=== PATIENT | female | born 1960 | race Caucasian/White ===

== ENCOUNTER 2018-07-28 09:48 | Observation (INO) | payer BC ==
[2018-07-28] MEDS ORDERED: NITROGLYCERIN 0.4 MG/TAB SL ONE (10:25)
[2018-07-28] MEDS ORDERED: ASPIRIN 81 MG CHEWABLE TABLET ONE (10:25)
--- NOTE | 2018-07-28 10:35 | RAD REPORT ---
EXAM DESCRIPTION: Loretta Single View07/28/2018 10:22 am CLINICAL HISTORY: Chest pain COMPARISON: 2012 FINDINGS: The lungs appear clear of acute infiltrate. The heart is normal size IMPRESSION: No acute abnormalities displayed
[2018-07-28 10:53] LABS: Protime INR 0.97
[2018-07-28 10:55] LABS: Absolute Lymphocytes (CBC) 2.8 K/uL (0.7-4.9); Absolute Monocytes 0.4 K/uL (0.1-1.3); Absolute Neutrophil 1.8 K/uL (1.8-8.0); Basophils % 1.2 % (0-1.3); Eosinophils % 1.3 % (0-4.4); Hematocrit 39.7 % (36.0-45.0); Lymphocytes % 54.3 % (15.3-44.8); MCH 29.9 pg (27.0-35.0); MCV 85.3 fL (80-100); MPV 10.3 fL (7.6-11.3); Monocytes % 7.3 % (3.3-12.3); RBC Red Blood Cell Count 4.65 M/uL (3.86-4.86)
[2018-07-28 11:14] LABS: ALT/SGPT 42 U/L (12-78); AST/SGOT 27 U/L (15-37); Albumin 4.7 g/dL (3.4-5.0); Alkaline Phosphatase 90 U/L (45-117); BUN Blood Urea Nitrogen 8 mg/dL (7-18); Bicarbonate 26 mmol/L (21-32); Bilirubin Direct < 0.1 mg/dL (0-0.2); Bilirubin Total 0.4 mg/dL (0.2-1.0); Glucose Level 119 mg/dL (74-106); Magnesium 1.9 mg/dL (1.8-2.4); NT PRO-BNP 18 pg/mL (<125); Potassium 3.3 mmol/L (3.5-5.1); Protein, Total 9.3 g/dL (6.4-8.2); Sodium Level 139 mmol/L (136-145); Troponin (Emerg Dept Use Only) < 0.02 ng/mL (0.0-0.045)
--- NOTE | 2018-07-28 11:46 | EDPHYS ---
Physician Documentation [facility] Name: Alexandra Mendoza Age: 58 yrs Sex: Female : 1960 Arrival Date: 07/28/2018 Time: 09:48 Bed 8 Private MD: Sloane Mcguire F ED Physician Octavio Mckee HPI: 07/28 10:43 This 58 yrs old Female presents to ER via Ambulatory with complaints of Chest jr8 Pain. 10:43 The patient or guardian reports chest pain that is located primarily in the substernal jr8 area. Onset: acutely, today. The pain radiates to the left arm, left neck, left jaw, the left scapula. Associated signs and symptoms: Pertinent positives: nausea. The chest pain is described as squeezing. Duration: The patient or guardian reports a single episode, that is still ongoing. Modifying factors: The symptoms are alleviated by nothing. the symptoms are aggravated by nothing. Severity of pain: At its worst the pain was moderate. The patient has experienced a previous episode. The patient has not recently seen a physician. Stated that she has had chest pain on/off for the past couple of weeks. Today more severe. Sent from PCP to ED for further evaluation . Historical: - Allergies: 10:04 Sulfa (Sulfonamide Antibiotics); jl7 10:04 Morphine; jl7 - PMHx: 10:04 High Cholesterol; Diabetes - NIDDM; Hypertension; Growth on Thyroid; jl7 - PSHx: 10:04 Lap Band; Hysterectomy; Bladder suspension; right foot; right wrist; liver dissection, jl7 left lobe; - Immunization history:: Adult Immunizations up to date. - Social history:: Smoking status: Patient/guardian denies using tobacco. - Ebola Screening: : No symptoms or risks identified at this time. ROS: 10:43 Eyes: Negative for injury, pain, redness, and discharge, ENT: Negative for injury, jr8 pain, and discharge, Neck: Negative for injury, pain, and swelling, Respiratory: Negative for shortness of breath, cough, wheezing, and pleuritic chest pain, Abdomen/GI: Negative for abdominal pain, nausea, vomiting, diarrhea, and constipation, Back: Negative for injury and pain, MS/Extremity: Negative for injury and deformity, Skin: Negative for injury, rash, and discoloration, Neuro: Negative for headache, weakness, numbness, tingling, and seizure. 10:43 Cardiovascular: Positive for chest pain, Negative for edema, orthopnea, palpitations, paroxysmal nocturnal dyspnea. Exam: 10:43 Eyes: Pupils equal round and reactive to light, extra-ocular motions intact. Lids and jr8 lashes normal. Conjunctiva and sclera are non-icteric and not injected. Cornea within normal limits. Periorbital areas with no swelling, redness, or edema. ENT: Nares patent. No nasal discharge, no septal abnormalities noted. Tympanic membranes are normal and external auditory canals are clear. Oropharynx with no redness, swelling, or masses, exudates, or evidence of obstruction, uvula midline. Mucous membranes moist. Neck: Trachea midline, no thyromegaly or masses palpated, and no cervical lymphadenopathy. Supple, full range of motion without nuchal rigidity, or vertebral point tenderness. No Meningismus. Cardiovascular: Regular rate and rhythm with a normal S1 and S2. No gallops, murmurs, or rubs. Normal PMI, no JVD. No pulse deficits. Respiratory: Lungs have equal breath sounds bilaterally, clear to auscultation and percussion. No rales, rhonchi or wheezes noted. No increased work of breathing, no retractions or nasal flaring. Abdomen/GI: Soft, non-tender, with normal bowel sounds. No distension or tympany. No guarding or rebound. No evidence of tenderness throughout. Back: No spinal tenderness. No costovertebral tenderness. Full range of motion. Skin: Warm, dry with normal turgor. Normal color with no rashes, no lesions, and no evidence of cellulitis. MS/ Extremity: Pulses equal, no cyanosis. Neurovascular intact. Full, normal range of motion. Neuro: Awake and alert, GCS 15, oriented to person, place, time, and situation. Cranial nerves II-XII grossly intact. Motor strength 5/5 in all extremities. Sensory grossly intact. Cerebellar exam normal. Normal gait. Vital Signs: 10:04 BP 196 / 90; Pulse 95; Resp 16 S; Temp 98.3(O); Pulse Ox 100% on R/A; Weight 77.11 kg jl7 (R); Height 5 ft. 1 in. (154.94 cm) (R); Pain 6/10; 11:00 BP 168 / 94; Pulse 88; Resp 16; Pulse Ox 100% on R/A; Pain 6/10; hb 11:57 BP 150 / 92; Pulse 87; Resp 15; Pulse Ox 100% on R/A; Pain 6/10; hb 14:00 BP 205 / 95; Pulse 118; Resp 17; Pulse Ox 100% on R/A; Pain 8/10; hb 15:17 BP 134 / 64; Pulse 86; Resp 15; Pulse Ox 100% on R/A; Pain 3/10; hb 10:04 Body Mass Index 32.12 (77.11 kg, 154.94 cm) jl7 MDM: 10:07 Patient medically screened. jr8 11:33 Differential diagnosis: abnormal EKG, acute myocardial infarction, acute pericarditis, jr8 chest wall pain, cholecystitis, Cholelithiasis costochondritis, esophagitis, pancreatitis, pneumonia, pneumothorax, pulmonary embolus, stable angina, thoracic aortic disection, unstable angina. The patient was given aspirin in the Emergency Department. The patient's pulmonary embolism risk score was calculated as follows: the patients heart rate is greater than 100 beats per minute (1.5 Pts) Total Score: 0-2 points. This patient was found to be at low risk for a pulmonary embolism by using the Well's assessment criteria. Data reviewed: vital signs, nurses notes, lab test result(s), EKG, radiologic studies, plain films, and as a result, I will admit patient. Data interpreted: Pulse oximetry: on room air is 100 %. Interpretation: normal. Counseling: I had a detailed discussion with the patient and/or guardian regarding: the historical points, exam findings, and any diagnostic results supporting the discharge/admit diagnosis, lab results, radiology results, the need for further work-up and treatment in the hospital. 11:40 Physician consultation: Sloane Mcguire MD was called at 11:40, was contacted at 11:40, jr8 regarding admission, to the telemetry unit. consult, patient's condition, and will see patient would like consultation with Dr. Turcios. 14:09 ED course: Patient had sudden onset chest pain with tachycardia, tachypnea, and jr8 Elevated BP. Repeating EKG, Trop and doing CT chest . 07/28 10:07 Order name: Basic Metabolic Panel jr8 07/28 10:07 Order name: CBC with Diff jr8 07/28 10:07 Order name: LFT's [facility] 07/28 10:07 Order name: Magnesium [facility] 07/28 10:07 Order name: NT PRO-BNP [facility] 07/28 10:07 Order name: PT-INR [facility] 07/28 10:07 Order name: Troponin (emerg Dept Use Only) [facility] 07/28 10:54 Order name: Protime (+INR); Complete Time: 11:03 EDMS 07/28 11:00 Order name: CBC with Automated Diff; Complete Time: 11:03 EDMS 07/28 11:21 Order name: Basic Metabolic Panel; Complete Time: 11:26 EDMS 07/28 11:21 Order name: Liver (Hepatic) Function; Complete Time: 11:26 EDMS 07/28 11:21 Order name: Troponin (Emerg Dept Use Only); Complete Time: 11:26 EDMS 07/28 11:21 Order name: NT PRO-BNP; Complete Time: 11:26 EDMS 07/28 11:21 Order name: Magnesium; Complete Time: 11:26 EDMS 07/28 10:07 Order name: XRAY Chest (1 view) [facility] 07/28 10:07 Order name: EKG; Complete Time: 10:08 [facility] 07/28 10:07 Order name: Cardiac monitoring; Complete Time: 10:30 [facility] 07/28 10:36 Order name: RAD; Complete Time: 10:42 EDMS 07/28 14:07 Order name: Troponin (emerg Dept Use Only) [facility] 07/28 14:09 Order name: CT Chest For PE Angio [facility] 07/28 14:56 Order name: Troponin (Emerg Dept Use Only); Complete Time: 15:07 EDMS 07/28 15:01 Order name: CT; Complete Time: 15:07 EDMS 07/28 10:07 Order name: EKG - Nurse/Tech; Complete Time: 10:30 [facility] 07/28 10:07 Order name: IV Saline Lock; Complete Time: 10:30 [facility] 07/28 10:07 Order name: Labs collected and sent; Complete Time: 10:30 [facility] 07/28 10:07 Order name: O2 Per Protocol; Complete Time: 10:30 [facility] 07/28 10:07 Order name: O2 Sat Monitoring; Complete Time: 10:30 [facility] 07/28 14:07 Order name: EKG - Nurse/Tech; Complete Time: 15:20 jr8 Administered Medications: 10:22 Drug: Aspirin Chewable Tablet 324 mg Route: PO; hb 11:10 Follow up: Response: No adverse reaction hb 10:22 Drug: Nitroglycerin 0.4 mg Route: Sublingual; hb 10:28 Drug: Nitroglycerin 0.4 mg Route: Sublingual; hb 10:51 Drug: Nitroglycerin 0.4 mg Route: Sublingual; hb 11:30 Follow up: Response: No adverse reaction hb 11:53 Drug: Potassium Chloride 20 mEq Route: PO; hb 12:45 Follow up: Response: No adverse reaction hb 11:55 Drug: fentaNYL (PF) 50 mcg Route: IVP; Site: right antecubital; hb 12:30 Follow up: Response: No adverse reaction; Pain is decreased hb 11:55 Drug: Zofran 4 mg Route: IVP; Site: right antecubital; hb 12:30 Follow up: Response: No adverse reaction hb 13:00 Drug: Tylenol 1000 mg Route: PO; hb 14:00 Follow up: Response: No adverse reaction; Pain is decreased hb 14:15 Drug: fentaNYL (PF) 25 mcg Route: IVP; Site: right antecubital; hb 14:40 Follow up: Response: No adverse reaction; Pain is decreased hb 14:16 Drug: Labetalol 10 mg Route: IVP; Infused Over: 2 mins; Site: right antecubital; hb 15:00 Follow up: Response: No adverse reaction; Blood pressure is lowered hb Disposition: 07/29 06:35 Co-signature as Attending Physician, Octavio Mckee MD I agree with the assessment and юлия plan of care. Disposition: 07/28/18 11:45 Hospitalization ordered by Sloane Mcguire for Observation. Preliminary diagnosis is Unstable angina. - Bed requested for Telemetry/MedSurg (observation). - Status is Observation. hb - Condition is Stable. - Problem is new. - Symptoms have improved. UTI on Admission? No Signatures: Dispatcher [employer] EDOctavio Anne MD MD cha Roszak, Josh, PA PA jr8 Odilia Hopkins RN RN hb Leal, Jahala, RN RN jl7 Shine, Carey, RN RN df Corrections: (The following items were deleted from the chart) 07/28 13:28 11:45 Hospitalization Ordered by Sloane Mcguire MD for Observation. Preliminary df diagnosis is Unstable angina. Bed requested for Telemetry/MedSurg (observation). Status is Observation. Condition is Stable. Problem is new. Symptoms have improved. UTI on Admission? No. jr8 15:56 13:28 07/28/2018 11:45 Hospitalization Ordered by Sloane Mcguire MD for Observation. hb Preliminary diagnosis is Unstable angina. Bed requested for Telemetry/MedSurg (observation). Status is Observation. Condition is Stable. Problem is new. Symptoms have improved. UTI on Admission? No. df
--- NOTE | 2018-07-28 11:46 | ER ---
Nurse's Notes [facility] Name: Alexandra Mendoza Age: 58 yrs Sex: Female : 1960 Arrival Date: 07/28/2018 Time: 09:48 Bed 8 Private MD: Sloane Mcguire F Diagnosis: Unstable angina Presentation: 07/28 10:00 Presenting complaint: Patient states: Intermittent Chest pain x 2 weeks, radiates to jl7 neck, jaw and left shoulder blade, short of breath when it happens, it's been hurting for about 10-12 minutes now. Transition of care: patient was received from another setting of care (ambulatory primary care physician practice), Dr. Eller. Onset of symptoms was July 18, 2018. Risk Assessment: Do you want to hurt yourself or someone else? Patient reports no desire to harm self or others. Initial Sepsis Screen: Does the patient meet any 2 criteria? No. Patient's initial sepsis screen is negative. Does the patient have a suspected source of infection? No. Patient's initial sepsis screen is negative. Care prior to arrival: None. 10:00 Method Of Arrival: Ambulatory jl7 10:00 Acuity: RAY 2 jl7 Historical: - Allergies: 10:04 Sulfa (Sulfonamide Antibiotics); jl7 10:04 Morphine; jl7 - PMHx: 10:04 High Cholesterol; Diabetes - NIDDM; Hypertension; Growth on Thyroid; jl7 - PSHx: 10:04 Lap Band; Hysterectomy; Bladder suspension; right foot; right wrist; liver dissection, jl7 left lobe; - Immunization history:: Adult Immunizations up to date. - Social history:: Smoking status: Patient/guardian denies using tobacco. - Ebola Screening: : No symptoms or risks identified at this time. Screenin:33 Abuse screen: Denies threats or abuse. Denies injuries from another. Nutritional hb screening: No deficits noted. Tuberculosis screening: No symptoms or risk factors identified. Fall Risk None identified. Assessment: 10:15 General: Appears in no apparent distress. Behavior is calm, cooperative. Pain: hb Complains of pain in chest Pain does not radiate. Pain currently is 6 out of 10 on a pain scale. Pain began suddenly, 3 hours ago. Neuro: Level of Consciousness is awake, alert, obeys commands, Oriented to person, place, time, situation. Cardiovascular: Heart tones S1 S2 present Capillary refill < 3 seconds Patient's skin is warm and dry. Respiratory: Airway is patent Trachea midline Respiratory effort is even, unlabored, Respiratory pattern is regular, symmetrical, Breath sounds are clear bilaterally. GI: No signs and/or symptoms were reported involving the gastrointestinal system. : No signs and/or symptoms were reported regarding the genitourinary system. EENT: No signs and/or symptoms were reported regarding the EENT system. Derm: Skin is intact, is healthy with good turgor, Skin is pink, warm \T\ dry. Musculoskeletal: No signs and/or symptoms reported regarding the musculoskeletal system. 11:00 Reassessment: Patient appears in no apparent distress at this time. Patient and/or hb family updated on plan of care and expected duration. Pain level reassessed. Patient is alert, oriented x 3, equal unlabored respirations, skin warm/dry/pink. 11:45 Reassessment: Pt reports left sided chest pain 6/10. MIRELA Castillo notified at bedside, hb fentanyl administered as ordered. VSS. Family remains at bedside. 12:35 Reassessment: Patient appears in no apparent distress at this time. Patient and/or hb family updated on plan of care and expected duration. Pain level reassessed. Patient is alert, oriented x 3, equal unlabored respirations, skin warm/dry/pink. 14:15 Reassessment: Pt c/o sudden increase left sided chest pain, BP 205/95, HR 115-125. MIRELA Castillo notified, repeat EKG and tropon sent, fentanyl administrated as ordered. 14:35 Reassessment: Attempted to call report to floor, receiving nurse unavailable at this time. Charge Nurse Nai HUTCHISON notified. 14:45 Reassessment: Pt reports pain 2/10, VSS. Family remains at bedside. hb Vital Signs: 10:04 BP 196 / 90; Pulse 95; Resp 16 S; Temp 98.3(O); Pulse Ox 100% on R/A; Weight 77.11 kg jl7 (R); Height 5 ft. 1 in. (154.94 cm) (R); Pain 6/10; 11:00 BP 168 / 94; Pulse 88; Resp 16; Pulse Ox 100% on R/A; Pain 6/10; hb 11:57 BP 150 / 92; Pulse 87; Resp 15; Pulse Ox 100% on R/A; Pain 6/10; hb 14:00 BP 205 / 95; Pulse 118; Resp 17; Pulse Ox 100% on R/A; Pain 8/10; hb 15:17 BP 134 / 64; Pulse 86; Resp 15; Pulse Ox 100% on R/A; Pain 3/10; hb 10:04 Body Mass Index 32.12 (77.11 kg, 154.94 cm) jl7 ED Course: 09:48 Patient arrived in ED. rg4 09:49 Sloane Mcguire MD is Private Physician. rg4 10:02 EKG done, by prototype technician. reviewed by Octavio Mckee MD. sm3 10:03 Triage completed. jl7 10:04 Arm band placed on right wrist. jl7 10:07 Jonathan Gutierrez PA is PHCP. jr8 10:07 Octavio Mckee MD is Attending Physician. jr8 10:21 X-ray completed. Portable x-ray completed in exam room. Patient tolerated procedure jb2 well. 10:29 Odilia Hopkins, RN is Primary Nurse. hb 10:33 Inserted saline lock: 20 gauge in right antecubital area, using aseptic technique. hb Blood collected. Patient maintains SpO2 saturation greater than 95% on room air. 10:33 Patient has correct armband on for positive identification. Placed in gown. Bed in low hb position. Call light in reach. Side rails up X 1. desk monitor on. Pulse ox on. NIBP on. 11:45 Sloane Mcguire MD is Hospitalizing Provider. jr8 12:45 No provider procedures requiring assistance completed. Patient admitted, IV remains in hb place. 14:25 REPEAT EKG DONE. sm3 14:33 CT completed. Patient tolerated procedure well. Patient moved to CT via stretcher. sj Patient moved back from CT. Administered Medications: 10:22 Drug: Aspirin Chewable Tablet 324 mg Route: PO; hb 11:10 Follow up: Response: No adverse reaction hb 10:22 Drug: Nitroglycerin 0.4 mg Route: Sublingual; hb 10:28 Drug: Nitroglycerin 0.4 mg Route: Sublingual; hb 10:51 Drug: Nitroglycerin 0.4 mg Route: Sublingual; hb 11:30 Follow up: Response: No adverse reaction hb 11:53 Drug: Potassium Chloride 20 mEq Route: PO; hb 12:45 Follow up: Response: No adverse reaction hb 11:55 Drug: fentaNYL (PF) 50 mcg Route: IVP; Site: right antecubital; hb 12:30 Follow up: Response: No adverse reaction; Pain is decreased hb 11:55 Drug: Zofran 4 mg Route: IVP; Site: right antecubital; hb 12:30 Follow up: Response: No adverse reaction hb 13:00 Drug: Tylenol 1000 mg Route: PO; hb 14:00 Follow up: Response: No adverse reaction; Pain is decreased hb 14:15 Drug: fentaNYL (PF) 25 mcg Route: IVP; Site: right antecubital; hb 14:40 Follow up: Response: No adverse reaction; Pain is decreased hb 14:16 Drug: Labetalol 10 mg Route: IVP; Infused Over: 2 mins; Site: right antecubital; hb 15:00 Follow up: Response: No adverse reaction; Blood pressure is lowered hb Outcome: 11:45 Decision to Hospitalize by Provider. osvaldo 12:27 Admitted to ER Hold. Please see [facility] for further documentation. sg 15:56 Patient left the ED. hb Signatures: Syed Cr RN RN sg Orion Robles2 Khadijah Waldrop Josh, PA PA jr8 Odilia Hopkins, RN RN Bella Edmond4 Gwen Hanna RN RN jl7 Erin Pitts 3 Corrections: (The following items were deleted from the chart) 15:22 14:00 BP 105 / 95; Pulse 118bpm; Resp 17bpm; Pulse Ox 100% RA; Pain 8/10; hb hb
[2018-07-28] MEDS ORDERED: FENTANYL CITR 100 MCG/2 ML ONE ×2 (11:56→14:19)
[2018-07-28] MEDS ORDERED: POTASSIUM CL SA 10 MEQ TAB PO ONE (11:56)
[2018-07-28] MEDS ORDERED: ONDANSETRON 4 MG/2 ML VIAL ONE (11:56)
[2018-07-28 12:35] VITALS: BMI 32.1
[2018-07-28] MEDS ORDERED: ACETAMINOPHEN 500 MG TAB ONE (13:38)
[2018-07-28] MEDS ORDERED: INFLUENZA VACCINE (for 3y+) 0.5 ML DOSE IMVAC ONE ×2 (14:00→19:00)
[2018-07-28] MEDS ORDERED: LABETALOL HCL 100 MG/20 ML ONE (14:19)
[2018-07-28] MEDS ORDERED: LABETALOL 20 MG/4ML SYRINGE IV ONE (14:20)
--- NOTE | 2018-07-28 15:01 | RAD REPORT ---
EXAM DESCRIPTION: CT - Chest For Pe Angio - 07/28/2018 2:40 pm CLINICAL HISTORY: Chest pain COMPARISON: None. TECHNIQUE: Dynamically enhanced axial 3 mm thick images of the chest were obtained during administra tion of <100> mL Isovue 370 IV contrast. Coronal and oblique reconstruction images were generated and reviewed. Exam utilizes a protocol for optimal evaluation of pulmonary arterial tree. Maximum intensity projections 3D imaging was utilized All CT scans are performed using dose optimization technique as appropriate and may include automated exposure control or mA/KV adjustment according to patient size. FINDINGS: A pulmonary embolus is not seen. A thoracic aortic aneurysm is not noted. A pleural effusion is not seen. A pericardial effusion is not seen. A lung consolidation is not present. IMPRESSION: Negative for a pulmonary embolism.
[2018-07-28] MEDS ORDERED: ACETAMINOPHEN 500 MG TAB PO PRN (15:55)
[2018-07-28] MEDS ORDERED: ONDANSETRON 4 MG/2 ML VIAL IV PRN (15:55)
--- NOTE | 2018-07-28 16:01 | EKG ---
Test Date: 2018-07-28 Test Time: 09:58:45 Rail Car Repair Carman: YARY MEASUREMENT RESULTS: Intervals: Rate: 105 [place]: 122 QRSD: 84 QT: 346 QTc: 457 [place]: P: 59 NC: 122 QRS: 45 T: 95 INTERPRETIVE STATEMENTS: Sinus tachycardia Otherwise normal ECG Compared to ECG 05/28/2013 07:36:44 Sinus rhythm no longer present Prolonged QT interval no longer present Electronically Signed On 07-28-18 15:59:10 FORKLIFT WHEEL LOADER by Deven Contreras
[2018-07-28] MEDS: ENOXAPARIN 40 MG/0.4 ML SQ SCH (16:56)
[2018-07-28] MEDS ORDERED: NITROGLYCERIN 1 GM PKT TD SCH (18:00)
[2018-07-28] MEDS ORDERED: D50W 25 GM/50 ML SYRINGE IV PRN (21:07)
[2018-07-28] MEDS ORDERED: GLUCAGON 1 MG/VIAL IM PRN (21:07)
[2018-07-29] MEDS ORDERED: TRAMADOL HCL 50 MG TAB PO PRN (00:44)
--- NOTE | 2018-07-29 02:19 | HP ---
Date of Admission: 07/28/2018 History Of Present Illness: A 58-year-old female with multiple medical problems including type 2 jade betmonalisa presented to emergency room with a complaint of having chest pain in the substernal area along with some shortness of breath that stays per her for about 2 to 3 minutes. The patient has been havi ng this for about a month off and on mainly while she is sitting, not related to activity, and had no radiation. The patient with her increased risk factor for coronary artery disease and a complaint o f chest pain like that she was admitted from the emergency room. The patient had no nausea, no vomit ing, no palpitation, no dizziness, and voiced no other complaints. Review of Systems: Cardiovascular: As mentioned, no palpitation, however, chest pressure and chest pain may or may not be angina. Respiratory: Shortness of breath for short time as mentioned above. No cough. Gastrointestinal: No complaint. Genitourinary: No complaint. Skeletomuscular: No complaint. Neurological: No complaint. Past Medical History: 1.Type 2 diabetes mellitus. 2.Hypertension. 3.Hyperlipidemia. 4.History of gastroesophageal reflux disease and restless legs syndrome. Past Surgical History: The patient has had hysterectomy, bladder suspension surgery, and right foot and wrist surgery. Social History: Denies smoking, alcohol, or IV drug abuse history. Family History: Noncontributing. Medications: Medications include Norvasc 10 mg p.o. daily, Lotensin 40 mg p.o. daily, carvedilol 6.2 5 mg p.o. t.i.d., clonidine 0.1 mg p.o. b.i.d., fenofibrate 134 mg p.o. daily, Lamictal 100 mg p.o. t .i.d., omeprazole 20 mg p.o. daily, Seroquel XR 200 mg p.o. at bedtime, allopurinol 40 mg p.o. daily, Crestor 40 mg p.o. daily, trazodone 50 mg p.o. at bedtime. Allergies: SULFA. Physical Examination: Vital Signs: Blood pressure 190/90, pulse 95, temperature 98.3. Heart: Regular rate and rhythm. Chest: Clear to auscultation. Abdomen: Soft, nontender, nondistended. Bowel sounds normoactive. Extremities: No edema. No cyanosis. Peripheral pulses are felt. Neurological: Alert, oriented, nonfocal. Grossly intact. Diagnostic Data: Chest x-ray and chest CT, no acute pathology. EKG reported to me by ER physician s willaming no acute ischemia at this time. CBC noted. Chemistry: Potassium 3.3, BUN 8, creatinine 0.9. The troponin less than 0.02. Assessment And Plan: 1.Precordial chest pain in the patient with high risk for coronary artery disease being admitted. W e will repeat EKG and we will ask Cardiology consult. We will put her on home medicines for chronic medical illnesses. To be admitted for observation and pending Cardiology input and recommendation. We will follow that. We will put her on Lovenox subcutaneous prophylaxis. 2.Hypokalemia. We will put her on electrolyte protocol. 3.We will put the patient on regular insulin sliding scale and check her blood sugar fingersticks q. a.c. and h.s. Look orders for details. MFS/MODL Voice ID: [id number]
[2018-07-29 04:55] LABS: Absolute Lymphocytes (CBC) 3.2 K/uL (0.7-4.9); Absolute Monocytes 0.5 K/uL (0.1-1.3); Basophils % 0.8 % (0-1.3); Eosinophils % 1.2 % (0-4.4); Hematocrit 33.2 % (36.0-45.0); Lymphocytes % 54.7 % (15.3-44.8); MCH 29.9 pg (27.0-35.0); MCV 86.1 fL (80-100); Monocytes % 8.9 % (3.3-12.3); RBC Red Blood Cell Count 3.85 M/uL (3.86-4.86)
[2018-07-29 05:05] LABS: Potassium 3.6 mmol/L (3.5-5.1)
[2018-07-29] MEDS ORDERED: POTASSIUM 25 MEQ EFFERV TAB PO ONE (05:17)
--- NOTE | 2018-07-29 05:52 | EKG ---
Test Date: 2018-07-28 Test Time: 15:55:25 Director Packaging: ROSALIO MEASUREMENT RESULTS: Intervals: Rate: 79 PA: 136 QRSD: 82 QT: 410 QTc: 470 [place]: P: 15 PA: 136 QRS: 39 T: 80 INTERPRETIVE STATEMENTS: Normal sinus rhythm Prolonged QT Abnormal ECG Compared to ECG 07/28/2018 09:58:45 Prolonged QT interval now present Sinus tachycardia no longer present Electronically Signed On 07-29-18 05:51:55 DERRICK ENGINEER by Lionel Turcios
--- NOTE | 2018-07-29 05:53 | EKG ---
Test Date: 2018-07-28 Test Time: 14:20:49 Computer Operations Manager: ROSALIO MEASUREMENT RESULTS: Intervals: Rate: 90 [place]: 142 QRSD: 82 QT: 400 QTc: 489 [place]: P: 68 [place]: 142 QRS: 38 T: 76 INTERPRETIVE STATEMENTS: Normal sinus rhythm with a premature ventricular complex Prolonged QT Abnormal ECG Compared to ECG 07/28/2018 09:58:45 Prolonged QT interval now present Sinus tachycardia no longer present premature ventricular complex is now present Electronically Signed On 07-29-18 05:52:47 FIELD RADIO OPERATOR by Lionel Turcios
[2018-07-29] MEDS: INSULIN -REGULAR HUMAN 50 UNIT/0.5 ML ML SQ SCH ×3 (07:30→16:30)
[2018-07-29 07:40] LABS: Urine Appearance CLOUDY; Urine Bilirubin NEGATIVE (NEG); Urine Blood NEGATIVE (NEG); Urine Color YELLOW; Urine Glucose NEGATIVE (NEG); Urine Protein NEGATIVE (NEG); Urine Specific Gravity 1.015 (1.005-1.030); Urine Urobilinogen 0.2 mg/dL (0.2-1.0); Urine pH 5.5 (5.0-7.0)
[2018-07-29 08:04] LABS: Urine Microscopic Reflex ORDER UMIC
[2018-07-29 08:15] LABS: Urine Bacteria >50 /HPF (<20); Urine Culture Reflex Order REFLEXED; Urine RBC <5 /HPF (NONE SEEN)
[2018-07-29] MEDS ORDERED: ASPIRIN EC 81 MG TAB PO SCH (09:00)
[2018-07-29] MEDS ORDERED: REGADENOSON 0.4 MG/5 ML SYR IV ONE (11:06)
[2018-07-29 11:20] VITALS: O2SAT 93
[2018-07-29] MEDS ORDERED: levoFLOXacin 500 MG TAB PO SCH (12:00)
[2018-07-29] MEDS ORDERED: FENTANYL CITR 100 MCG/2 ML IV ONE (12:27)
--- NOTE | 2018-07-29 12:37 | EKG ---
Test Date: 2018-07-29 Test Time: 12:28:26 Draw Press Operator: TARA MEASUREMENT RESULTS: Intervals: Rate: 81 [place]: 140 QRSD: 86 QT: 406 QTc: 471 [place]: P: 50 [place]: 140 QRS: 54 T: 86 INTERPRETIVE STATEMENTS: Normal sinus rhythm Prolonged QT Abnormal ECG Compared to ECG 07/28/2018 15:55:25 No significant changes Electronically Signed On 07-29-18 12:37:00 STATION MASTER by Lionel Turcios
[2018-07-29 12:52] VITALS: BP 169/78; TEMP 97.5
--- NOTE | 2018-07-29 12:58 | CON ---
The patient is a 58-year-old woman. Chief Complaint: Chest pain. History Of Present Illness: Mrs. Mendoza has been having chest pain for 3 weeks. They are 15-min [place] spells, usually 3 a day. She is able to exert herself and do all kinds of activities and does no t notice any pattern. It is from 2 to 4 spells a day, each lasts 15 minutes. Hurts mostly in the le ft pectoral region, intense pain. She had one of those spells and had EKGs done both before, during, and after, and they are all similar, not indicating any ST changes. Ms. Mendoza had a cardiac ca th 15 years ago and it was normal. She had her gallbladder removed then. She has borderline glucose intolerance, takes metformin 500 mg once a day. She also takes blood pressure medicines, losartan a nd amlodipine. She takes levothyroxine and lovastatin. She uses no tobacco, no alcohol, no illegal drugs. Physical Examination: VITAL SIGNS: Five feet and 1 inch, 169 pounds. HEENT: Normal. Neck: Carotids, no bruit. Lungs: Clear. Cardiac: Normal. Abdomen: Soft. Extremities: Normal. Laboratory Data: She is mildly anemic, actually dropped her hemoglobin 2 g overnight, 13.9 to 11.5. Her creatinine is 0.9. Troponins are all less than 0.02. Her blood sugar is 119 and 142. Impression: Mrs. Mendoza probably is not having an acute coronary syndrome. We will do a nuclear stress test and echo, and then, take action based on what we see. GLORIA Voice ID: [id number] Report ID: [id number]
--- NOTE | 2018-07-29 13:10 | TREADPHA ---
DX: CHEST PAIN, MYOCARDIAL INFARCTION WAS RULED OUT Date of Study: 07/29/18 Ht: 5 1 Wt: 169 lb 15.622 oz Consulting Physician: ROLY MEDICATIONS: TYLENOL, EXTRA STRENGTH, ASPIRIN, DEXTROSE, LOVENOX, GLUCAGEN, NOVLLIN, ZOFRAN, ULTRAM HISTORY: 58 YEAR OLD FEMALE WITH COMPLAINTS OF CHEST PAIN. MEDICAL HISTORY OF HIGH CHOLESTEROL, DIABETES MELLITUS, HYPERTENSION, GROWTH ON THYROID PHYSICIAL EXAMINATION: RESTING B.P.: 164/65 RESTING H.R.: 80 RESTING EKG: NORMAL SINUS WITH PREMATURE VENTRICULAR COMPLEX OTHERWISE NORMAL PROTOCOL: LEXISCAN EXERCISE TIME: 3:30 B.P. AT PEAK STRESS: 168/75 IMPRESSION: LEXISCAN INJECTED, CARDIOLITE INJECTED PER PROTOCOL. SEE NUCLEAR MEDICINE REPORT. NO SUPRA VENTRICULAR TACHYCARDIA, NO VENTRICULAR TACHYCARDIA. OCCASIONAL PREMATURE VENTRICULAR COMLEXES THROUGHOUT. PATIENT STATES HAVING CRAMPING 6/10 IN CHEST. ONE PREMATURE VENTRICULAR COMPLEX. NON DIAGNOSTIC EKG WITH LEXISCAN STRESS.
--- NOTE | 2018-07-29 13:29 | ECHO ---
HEIGHT: 5 ft 1 in WEIGHT: 169 lb 15.622 oz DATE OF STUDY: 07/29/[address]: Lionel Turcios MD 2-DIMENSIONAL: YES M.MODE: YES DOPPLER: YES COLOR FLOW: YES TDS: NO PORTABLE: NO DEFINITY: NO BUBBLE STUDY: NO DIAGNOSIS: CHEST PAIN CARDIAC HISTORY: CATHERIZATION: NO SURGERY: NO PROSTHETIC VALVE: NO PACEMAKER: NO MEASUREMENTS (cm) DIASTOLIC (NORMALS) SYSTOLIC (NORMALS) IVSd 1.2 (0.6-1.2) LA Diam 4.2 (1.9-4.0) LVEF 64% LVIDd 3.5 (3.5-5.7) LVIDs 2.3 (2.0-3.5) %FS 34% LVPWd 1.1 (0.6-1.2) Ao Diam 2.7 (2.0-3.7) 2 DIMENSIONAL ASSESSMENT: RIGHT ATRIUM: NORMAL LEFT ATRIUM: DILATED RIGHT VENTRICLE: NORMAL LEFT VENTRICLE: NORMAL TRICUSPID VALVE: NORMAL MITRAL VALVE: NORMAL PULMONIC VALVE: NORMAL AORTIC VALVE: NORMAL PERICARDIAL EFFUSION: NONE AORTIC ROOT: NORMAL LEFT VENTRICULAR WALL MOTION: NORMAL. DOPPLER/COLOR FLOW: IMPAIRED LEFT VENTRICULAR RELAXATION. MILD TRICUSPID REGURGITATION. NORMAL RIGHT VENTRICULAR SYSTOLIC PRESSURE. COMMENTS: NORMAL LEFT VENTRICULAR EJECTION FRACTION. DILATED LEFT ATRIUM. IMPAIRED LEFT VENTRICULAR EJECTION FRACTION. MILD TRICUSPID REGURGITATION. TECHNOLOGIST: ABBY TUTTLE
--- NOTE | 2018-07-29 13:33 | RAD REPORT ---
EXAM DESCRIPTION: NM - Rest Stress Cardiac Imaging - 07/29/2018 1:27 pm CLINICAL HISTORY: CP Chest pain. COMPARISON: REST STRESS CARDIAC dated 05/28/2013 TECHNIQUE: The patient was administered approximately 10mCi of Tc 99m Sestamibi prior to resting SPE CT imaging of the heart. The patient was then administered approximately 30 mCi of Tc 99m Sestamibi f ollowing exercise or pharmacologic stress. Multiplanar SPECT images were reviewed. FINDINGS: No stress induced ischemic defect is seen to suggest stress induced ischemia. No fixed def ect is seen to suggest hibernating myocardium or scarred myocardium. The end diastolic volume is 57 ml, the end systolic volume is 17 ml, and the ejection fraction is 71 %. IMPRESSION: No stress induced ischemia.
[2018-07-29] MEDS ORDERED: INFLUENZA VACCINE (for 3y+) 0.5 ML DOSE IMVAC ONE (14:00)
--- NOTE | 2018-07-29 16:19 | PN ---
Subjective: The patient is doing well, has no complaints. No chest pain today and no shortness of b reath. Objective: Vital signs: Blood pressure 148/80, pulse 83, temperature 97. Heart: Regular rate and rhythm. Chest: Clear to auscultation. Abdomen: Soft, benign. Neurologic: Alert and oriented. Nonfocal. Grossly intact. Extremities: No edema. No cyanosis. Diagnostic Studies: Urinalysis showed evidence of UTI. Her troponin was basically less than 0.02. Chem-7 is noted. CBC noted. Assessment And Plan: Chest pain and shortness of breath, resolved. The patient is having stress elsy t to be done today. If it is negative, we will go ahead and discharge her on oral Levaquin for her u rinary tract infection. Meanwhile, continue current treatment. MFS/MODL Voice ID: [id number] Report ID: [id number]
[2018-07-29] MEDS: ENOXAPARIN 40 MG/0.4 ML SQ SCH (17:00)
[2018-07-29] MEDS ORDERED: ATORVASTATIN 10 MG TAB PO SCH (21:00)
[2018-07-30] MEDS ORDERED: LEVOTHYROXINE SOD 0.025 MG TAB PO SCH (09:00)
[2018-07-30] MEDS ORDERED: METFORMIN ER 500 MG TAB PO SCH (09:00)
[2018-07-30] MEDS ORDERED: LOSARTAN POTASSIUM 50 MG TABLET PO SCH (09:00)
[2018-07-30] MEDS ORDERED: AMLODIPINE 5 MG TAB PO SCH (09:00)
== END 2018-07-29 18:31 | disposition home or self-care (01) ==
LOC: ER 09:48 → ERHOLD 12:17 → 4TH 15:32
PROVIDERS: ADMIT Internal Medicine; ATTEND Internal Medicine
DX: R07.2 Precordial pain (principal); N39.0 Urinary tract infection, site not specified; E87.6 Hypokalemia; E11.9 Type 2 diabetes mellitus without complications; I10 Essential (primary) hypertension; E78.5 Hyperlipidemia, unspecified; K21.9 Gastro-esophageal reflux disease without esophagitis; G25.81 Restless legs syndrome; Z88.2 Allergy status to sulfonamides; Z23 Encounter for immunization
CPT/HCPCS: 36415; 71045; 71275; 78452; 80048; 80076; 81003; 81015; 82962; 83735; 83880; 84484; 85025; 85610; 87077; 87086; 87088; 87186; 93005; 93017; 93306; 96374; 96375; 99285; A9500; G0008; G0378; J1650; J2405; J2785; J3010; Q2035; Q9967

== ENCOUNTER → 2018-08-11 | Day surgery (SDC) | payer BC ==
--- NOTE | 2018-08-11 10:34 | RAD REPORT ---
EXAM DESCRIPTION: US - Guided FNA Non Breast - 08/11/2018 10:02 am CLINICAL HISTORY: Right thyroid nodule ^E04.1 COMPARISON: Ultrasound July 08, 2018 TECHNIQUE: Patient presents for ultrasound-guided fine-needle aspiration of a 2.5 centimeter mid rig ht thyroid lobe solid and cystic nodule. The procedure, risks and alternatives were discussed with the patient in detail. Patient had no contr aindicated allergy or medication history. After answering all questions, oral and written consent wer e obtained. Preliminary imaging identified the right thyroid nodule. Anterior right neck was prepped and draped i n the usual sterile fashion. Under ultrasound guidance, skin and deeper tissues were anesthetized wit h 1% lidocaine. Under ultrasound guidance a 25 gauge needle was advanced into the nodule solid compon ent. Multiple to and fro excursions of the needle tip performed. FNA was repeated with 3 additional 2 5 gauge needles. All material was given to pathology for cytology assessment. At the conclusion the procedure follow-up imaging showed no hematoma. Patient quantified no pain at t he conclusion of the procedure. Postprocedure care and precaution instructions were given to the von ent. FINDINGS: Ultrasound-guided FNA was performed as detailed. All obtained material was given to nimesh beaver for cytology assessment.
== END ==
LOC: FNA 09:12
PROVIDERS: ATTEND Internal Medicine
DX: E04.1 Nontoxic single thyroid nodule (principal); I10 Essential (primary) hypertension; R07.9 Chest pain, unspecified; Z13.6 Encounter for screening for cardiovascular disorders
CPT/HCPCS: 88162

== ENCOUNTER 2018-09-18 10:02 | Day surgery (SDC) | payer BC ==
[2018-09-17 17:18] LABS: Absolute Lymphocytes (CBC) 3.1 K/uL (0.7-4.9); Absolute Monocytes 0.4 K/uL (0.1-1.3); Absolute Neutrophil 2.2 K/uL (1.8-8.0); Basophils % 1.1 % (0-1.3); Eosinophils % 1.1 % (0-4.4); Hematocrit 37.8 % (36.0-45.0); Lymphocytes % 52.1 % (15.3-44.8); MPV 10.2 fL (7.6-11.3); Monocytes % 7.5 % (3.3-12.3); RBC Red Blood Cell Count 4.39 M/uL (3.86-4.86)
[2018-09-17 17:25] LABS: Protein, Total 8.3 g/dL (6.4-8.2)
[2018-09-18] MEDS ORDERED: NA CHLORIDE 0.9% 1,000 ML ONE ×2 (10:38→16:55)
[2018-09-18] MEDS ORDERED: MIDAZOLAM HCL 2 MG/2 ML INJ ONE (13:03)
[2018-09-18] MEDS ORDERED: PROPOFOL 200 MG/20 ML VIAL IV ONE (13:21)
[2018-09-18] MEDS ORDERED: GLYCOPYRROLATE 0.2 MG/ML SYR ONE (13:21)
[2018-09-18] MEDS ORDERED: LIDOCAINE 2% MPF 5 ML VIAL ONE (13:22)
[2018-09-18] MEDS ORDERED: FENTANYL CITR 250 MCG/5 ML ONE (13:23)
[2018-09-18] MEDS ORDERED: ROCURONIUM 50 MG/5 ML VIAL IV ONE (13:25)
[2018-09-18] MEDS ORDERED: ONDANSETRON 4 MG/2 ML VIAL ONE ×2 (13:25→16:27)
[2018-09-18] MEDS ORDERED: NEOSTIGMINE 1 MG/ML -5 ML SYRINGE ONE (13:25)
[2018-09-18] MEDS ORDERED: LIDOCAINE 1% W/EPI 1:100,000 MDV 50 ML VIAL ONE (13:39)
[2018-09-18] MEDS ORDERED: EPHEDRINE SULF 50 MG/10 ML SYR ONE (14:13)
--- NOTE | 2018-09-18 15:24 | P.BOP ---
Preoperative diagnosis: suspicious thyroid nodule Postoperative diagnosis: same Primary procedure: total thyroidectomy Student Specialist: Selena Macario Estimated blood loss: 20ml Specimen: TT, suture R superior pole Anesthesia: General Complications: None Drain(s): SUSIE drain Implants: surgicel to L tracheoesophageal groove/over L RLN Transferred to: Recovery Room Condition: Good
[2018-09-18] MEDS ORDERED: Mastisol Adhesive Liq ONE (15:34)
[2018-09-18] MEDS: MEPERIDINE HCL 50 MG/ML AMP ONE ×2 (15:48→15:53)
[2018-09-18] MEDS ORDERED: KETOROLAC 30 MG/ML INJ ONE (15:57)
[2018-09-18] MEDS ORDERED: MEPERIDINE HCL 50 MG/ML AMP ONE (16:25)
[2018-09-18] MEDS ORDERED: PROMETHAZINE 25 MG/ML VIAL ONE (16:47)
[2018-09-18 17:59] VITALS: BP 114/54; TEMP 98.2; O2SAT 99
[2018-09-18] MEDS ORDERED: HYDROCODONE/APAP 5/325 MG TAB ONE (18:03)
--- NOTE | 2018-09-19 01:56 | OP ---
Surgeon: Susan Kim MD Manager Filter: Selena Macario. Preoperative Diagnosis: Suspicious thyroid nodule. Postoperative Diagnosis: Suspicious thyroid nodule. Procedure: Total thyroidectomy. Indication For Procedure: Ms. Mendoza is a 58-year-old who underwent a fine-needle aspiration bio psy in 2013, which was benign. However, the patient over the last few months has developed a notable enlargement of the thyroid with development of dysphagia symptoms and underwent an ultrasound-guided fine-needle biopsy ordered by her primary care physician due to these symptoms. The patient was ref erred urgently for evaluation due to findings of suspicious nodule on molecular testing. The risks, benefits, and alternatives of the procedure were discussed with the patient and recommendation was pipo munoz for urgent surgery due to possible cancer diagnosis. Description Of Procedure: The patient was brought to the operating room. She was placed under gener al anesthesia via oral endotracheal tube. A shoulder roll was placed. The neck was extended. The n chari was cleaned with alcohol and injected with lidocaine with epinephrine. After time for effect, th e neck was cleaned with Betadine and draped in a standard fashion for thyroid surgery. A low-collar incision was made through the skin and subcutaneous tissues. The platysma was identified and divided , and subplatysmal flaps were elevated. The strap muscles were then identified in the midline and ca refully elevated off the surface of the thyroid. The right thyroid was noted to have a round firm no dule at approximately 2.5 cm. Dissection was carried out along the capsule of the thyroid. Portions of the thyroid seemed to extend deeply around into the tracheoesophageal groove and was likely contr ibuting to the development of her dysphagia symptoms. During elevation of the thyroid off the underl bhakti tissues, the right recurrent laryngeal nerve was identified. It did show a V like branching pat tern and both branches were preserved and noted to be physically intact at the end of the case. The right thyroid was then rotated medially and elevated off the anterior tracheal wall. The thyroid was then replaced into anatomic position and dissection of the left side was undertaken. The anterior s urface of the left thyroid was noted to be hypervascular with multiple tiny vessel sites on its surfa ce. The thyroid was carefully dissected. The inferior pole was easily elevated and freed from under lying tissue attachments. The superior pole was somewhat tethered down and careful dissection was pipo munoz in the area of Nemesio's ligament to avoid damage to the recurrent laryngeal nerve. With rotation o f the gland, the recurrent laryngeal nerve was identified and division of the tissues were made and t he nerve was appeared to be physically intact. There was some moderate oozing in the area immediatel y around the left recurrent laryngeal nerve. The packing was placed in this area for several minutes . After removal of the packing, there was improvement but persistent oozing. Due to the location of the site immediately adjacent to the nerve cautery, it was not felt to be in the patient's best inte rest. After several minutes of further packing with persistent oozing, a small piece of Gelfoam was laid over the recurrent laryngeal nerve within the left tracheoesophageal groove. A Ray-Bailey was pack ed over the Surgicel and left for several minutes. After removal of the Ray-Bailey, the area around the Surgicel was examined, but the Surgicel was not removed. There was no evidence of fresh bleeding or accumulation of blood within the surgical wound and the area was felt to be hemostatic. The specime n was carefully examined. The right superior pole of the thyroid was marked with a suture for orient ation for pathology and it was sent for permanent section only. There was no evidence of excised par athyroid glands on the surface of the thyroid specimen after its removal. The wound was then closed in a layered fashion. The strap muscles were approximated over the trachea with a single suture. Th e incision was then closed in a layered fashion using a 4-0 Vicryl and 5-0 Monocryl subcuticular sutu re. Steri-Strips and Mastisol were placed. The 10-Faroese round SUSIE drain, which had been placed in t he wound and withdrawn through the right neck was attached to a bulb suction, which appeared to be ho lding well. The drain was secured using a 3-0 nylon suture. The patient was then returned to [facility] [address] for awakening and extubation in the operating room, which proceeded without difficulty. Upon im mediate extubation, the patient had no evidence of respiratory distress and was transported in stable condition to the [facility]. JOELLEN/ZIA Voice ID: [id number] Report ID: [id number]
== END 2018-09-18 18:39 | disposition home or self-care (01) ==
LOC: OR 10:02
PROVIDERS: ATTEND Otolaryngology
PROC: 0GBJ0ZZ Excision of Thyroid Gland Isthmus, Open Approach (ICD-10-PCS; 2018-09-18)
PROC: 0GTK0ZZ Resection of Thyroid Gland, Open Approach (ICD-10-PCS; principal; 2018-09-18 13:15)
DX: C73 Malignant neoplasm of thyroid gland (principal); E06.3 Autoimmune thyroiditis; R49.0 Dysphonia; E03.9 Hypothyroidism, unspecified; E11.9 Type 2 diabetes mellitus without complications; I10 Essential (primary) hypertension; G47.33 Obstructive sleep apnea (adult) (pediatric); K21.9 Gastro-esophageal reflux disease without esophagitis; E78.00 Pure hypercholesterolemia, unspecified; Z88.2 Allergy status to sulfonamides; Z88.6 Allergy status to analgesic agent; Z90.49 Acquired absence of other specified parts of digestive tract; Z83.3 Family history of diabetes mellitus
CPT/HCPCS: 36415; 82310; 82962; 83970; 84155; 85025; 88307; J2175; J2250; J2405; J2550; J2704; J2710; J3010; J7030

== ENCOUNTER 2019-09-13 11:24 | Observation (INO) | payer BC ==
--- NOTE | 2019-09-13 12:07 | EKG ---
Test Date: 2019-09-13 Test Time: 11:32:06 Greige Goods Examiner: GISELLE MEASUREMENT RESULTS: Intervals: Rate: 82 MN: 120 QRSD: 80 QT: 396 QTc: 462 [place]: P: 80 MN: 120 QRS: 25 T: 76 INTERPRETIVE STATEMENTS: Normal sinus rhythm Nonspecific T wave abnormality Prolonged QT Abnormal ECG Compared to ECG 07/29/2018 12:28:26 T-wave abnormality now present Electronically Signed On 09-13-19 12:07:09 [employer] PLANS STAFF OFFICER by Lionel Turcios
[2019-09-13 12:08] LABS: Basophils % 1.1 % (0-1.3); Lymphocytes % 56.4 % (15.3-44.8); MPV 9.4 fL (7.6-11.3); Protime INR 1.02; RBC Red Blood Cell Count 4.06 M/uL (3.86-4.86)
--- NOTE | 2019-09-13 12:11 | RAD REPORT ---
EXAM DESCRIPTION: RAD - Chest Single View - 09/13/2019 11:59 am CLINICAL HISTORY: Chest pain;Dyspnea Chest pain. COMPARISON: Chest Single View dated 07/28/2018; CHEST SINGLE VIEW dated 05/27/2013; CHEST SINGLE VIEW dated 06/30/2012; CHEST PA AND LAT 2 VIEW dated 03/25/2012 FINDINGS: Portable technique limits examination quality. The lungs are grossly clear. The heart is upper limit of normal in size. No displaced fractures. IMPRESSION: No acute intrathoracic process suspected.
[2019-09-13 12:19] LABS: ALT/SGPT 76 U/L (12-78); AST/SGOT 62 U/L (15-37); Albumin 4.5 g/dL (3.4-5.0); Alkaline Phosphatase 41 U/L (45-117); BUN Blood Urea Nitrogen 11 mg/dL (7-18); Bicarbonate 29 mmol/L (21-32); Bilirubin Direct 0.1 mg/dL (0-0.2); Bilirubin Total 0.4 mg/dL (0.2-1.0); Glucose Level 95 mg/dL (74-106); Lipase 147 U/L (73-393); Magnesium 1.7 mg/dL (1.8-2.4); NT PRO-BNP 40 pg/mL (<125); Potassium 3.7 mmol/L (3.5-5.1); Sodium Level 137 mmol/L (136-145); Troponin (Emerg Dept Use Only) < 0.02 ng/mL (0.0-0.045)
[2019-09-13] MEDS ORDERED: FENTANYL CITR 100 MCG/2 ML ONE (12:39)
[2019-09-13] MEDS ORDERED: FAMOTIDINE 20 MG/2 ML VIAL IV ONE (12:40)
[2019-09-13] MEDS ORDERED: METOPROLOL TAR 50 MG TAB ONE (12:40)
[2019-09-13] MEDS ORDERED: ONDANSETRON 4 MG/2 ML VIAL ONE (12:40)
[2019-09-13] MEDS ORDERED: MAGNESIUM SULFATE 1 gm IVPB 1 GM/100 ML BAG IV ONE (13:00)
--- NOTE | 2019-09-13 13:00 | RAD REPORT ---
EXAM DESCRIPTION: CT - Angio Aorta For Dissection - 09/13/2019 12:49 pm CLINICAL HISTORY: Chest pain radiating to the back. Dissection;PE COMPARISON: CTANGIO AORTA FOR DISSECTION dated 05/27/2013 TECHNIQUE: CT angiography of the aorta was performed with MIPs. All CT scans are performed using dose optimization technique as appropriate and may include automated exposure control or mA/KV adjustment according to patient size. FINDINGS: A left aortic arch is present with normal branching pattern of the great vessels.No acute aortic finding is seen such as aneurysm, penetrating ulcer or dissection. The celiac axis, SMA, HAILEY and renal arteries are patent. No evidence of pulmonary embolism. The lungs are clear. Gastric banding changes are present. The liver demonstrates no focal mass or biliary dilatation.Fatty liver. Cholecystectomy clips.The spl een, pancreas, adrenal glands and kidneys are within normal limits for arterial phase imaging. No bowel obstruction, free fluid or abscess.No pathologic enlarged lymphadenopathy identified. No fracture or worrisome bone lesion seen.Moderate spondylosis L5-S1. IMPRESSION: No acute aortic finding is demonstrated. Fatty liver.
--- NOTE | 2019-09-13 13:42 | ER ---
Nurse's Notes [facility] Name: Alexandra Mendoza Age: 59 yrs Sex: Female : 1960 Arrival Date: 09/13/2019 Time: 11:26 Bed 25 Private MD: Diagnosis: Essential (primary) hypertension;Type 2 diabetes mellitus;Chest pain, unspecified;Vomiting;Hypomagnesemia;Urinary tract infection, site not specified Presentation: 09/13 11:28 Presenting complaint: Patient states: my blood pressure is running high, my head is tw2 tingly and chest pain an hour ago, denies NVD, denies cough/congestion. Transition of care: patient was not received from another setting of care. Onset of symptoms was September 13, 2019. Risk Assessment: Do you want to hurt yourself or someone else? Patient reports no desire to harm self or others. Initial Sepsis Screen: Does the patient meet any 2 criteria? No. Patient's initial sepsis screen is negative. Does the patient have a suspected source of infection? No. Patient's initial sepsis screen is negative. Care prior to arrival: None. 11:28 Method Of Arrival: Ambulatory tw2 11:28 Acuity: RAY 2 tw2 Triage Assessment: 11:29 General: Appears uncomfortable, Behavior is calm, cooperative, appropriate for age. tw2 Pain: Complains of pain in chest. Cardiovascular: Reports chest pain. Historical: - Allergies: 11:30 Morphine; tw2 11:30 Sulfa (Sulfonamide Antibiotics); tw2 11:30 Demerol; tw2 - Home Meds: 11:32 levothyroxine 137 mcg tab 1 tab once daily [Active]; fenofibrate oral 145 mg oral tw2 [Active]; lovastatin 10 mg Oral tab 1 tab once daily [Active]; losartan-hydrochlorothiazide 100-12.5 mg oral tab 1 tab once daily [Active]; metformin 1,000 mg Oral tab 1 tab 2 times per day [Active]; alendronate 70 mg/75 mL oral soln 75 mL once wkly [Active]; calcium carbonate 600 mg (1,500 mg) Oral tab [Active]; - PMHx: 11:30 Diabetes - NIDDM; Growth on Thyroid; High Cholesterol; Hypertension; tw2 - PSHx: 11:30 Lap Band; Hysterectomy; Bladder suspension; right foot; right wrist; liver dissection, tw2 left lobe; - Immunization history:: Adult Immunizations. - Social history:: Smoking status: . - Ebola Screening: : Patient denies travel to an Ebola-affected area in the 21 days before illness onset. - Family history:: not pertinent. Screenin:45 Abuse screen: Denies threats or abuse. Denies injuries from another. Nutritional aj1 screening: No deficits noted. Tuberculosis screening: No symptoms or risk factors identified. 16:00 Fall Risk No fall in past 12 months (0 pts). No secondary diagnosis (0 pts). IV access aj1 (20 points). Ambulatory Aid- None/Bed Rest/Nurse Assist (0 pts). Gait- Normal/Bed Rest/Wheelchair (0 pts) Mental Status- Oriented to own ability (0 pts). Total Mckeon Fall Scale indicates No Risk (0-24 pts). Assessment: 11:45 General: Appears in no apparent distress. uncomfortable, Behavior is calm, cooperative, aj1 appropriate for age. Pain: Complains of pain in anterior aspect of left upper chest Pain radiates to left arm Quality of pain is described as sharp, Pain began 1 hour ago. Is continuous. Neuro: Level of Consciousness is awake, alert, obeys commands, Oriented to person, place, time, situation. Cardiovascular: Reports chest pain, lightheadedness, nausea, Heart tones S1 S2 present Patient's skin is warm and dry. Rhythm is sinus rhythm. Respiratory: Airway is patent Respiratory effort is even, unlabored, Respiratory pattern is regular, symmetrical. GI: No signs and/or symptoms were reported involving the gastrointestinal system. : No signs and/or symptoms were reported regarding the genitourinary system. EENT: No signs and/or symptoms were reported regarding the EENT system. Derm: No signs and/or symptoms reported regarding the dermatologic system. Skin is pink, warm \T\ dry. normal. Musculoskeletal: No signs and/or symptoms reported regarding the musculoskeletal system. Circulation, motion, and sensation intact. 12:17 Reassessment: Patient appears in no apparent distress at this time. No changes from aj1 previously documented assessment. Patient and/or family updated on plan of care and expected duration. Pain level reassessed. Patient is alert, oriented x 3, equal unlabored respirations, skin warm/dry/pink. 13:23 Reassessment: Patient and/or family updated on plan of care and expected duration. Pain aj1 level reassessed. General: Appears in no apparent distress. comfortable, Behavior is calm, cooperative, appropriate for age. Neuro: Level of Consciousness is awake, alert, obeys commands, Oriented to person, place, time, situation. Cardiovascular: Patient's skin is warm and dry. Rhythm is sinus rhythm. Respiratory: Airway is patent Respiratory effort is even, unlabored, Respiratory pattern is regular, symmetrical. Derm: No signs and/or symptoms reported regarding the dermatologic system. Skin is pink, warm \T\ dry. normal. Musculoskeletal: No signs and/or symptoms reported regarding the musculoskeletal system. Circulation, motion, and sensation intact. 13:40 Reassessment: Notified Dr. Mckee of patient's current vital signs, BP 158/79 HR 86, aj1 patient has received oral Lopresor, but not IV Lopressor, asked if he still wanted patient to receive IV Lopressor. Order received to give the IV Lopressor as long as systolic BP remains above 100 and heart rate remains above 60. 14:30 Reassessment: Patient appears in no apparent distress at this time. No changes from aj1 previously documented assessment. Patient and/or family updated on plan of care and expected duration. Pain level reassessed. Patient is alert, oriented x 3, equal unlabored respirations, skin warm/dry/pink. 15:30 Reassessment: Patient appears in no apparent distress at this time. No changes from aj1 previously documented assessment. Patient and/or family updated on plan of care and expected duration. Pain level reassessed. Patient is alert, oriented x 3, equal unlabored respirations, skin warm/dry/pink. Vital Signs: 11:30 BP 233 / 109; Pulse 88; Resp 17; Temp 97.6(O); Pulse Ox 99% on R/A; Weight 77.11 kg; tw2 Height 5 ft. 1 in. (154.94 cm); Pain 6/10; 11:47 BP 195 / 95; Pulse 83; Resp 14; Pulse Ox 99% on R/A; aj1 12:00 BP 193 / 89; Pulse 82; Resp 16; Pulse Ox 97% on R/A; aj1 12:16 BP 185 / 81; Pulse 84; Resp 14; Pulse Ox 99% on R/A; aj1 12:32 BP 182 / 86; Pulse 82; Resp 14; Pulse Ox 97% on R/A; aj1 13:17 BP 158 / 79; Pulse 86; Resp 14; Pulse Ox 98% on R/A; aj1 14:02 BP 181 / 97; Pulse 72; Resp 13; Pulse Ox 96% on R/A; aj1 14:30 BP 179 / 92; Pulse 71; Resp 18; Pulse Ox 99% on R/A; aj1 15:00 BP 164 / 83; Pulse 69; Resp 18; Pulse Ox 97% on R/A; aj1 15:30 BP 170 / 80; Pulse 67; Resp 18; Pulse Ox 97% on R/A; aj1 11:30 Body Mass Index 32.12 (77.11 kg, 154.94 cm) tw2 ED Course: 11:26 Patient arrived in ED. as 11:29 Triage completed. tw2 11:29 Arm band placed on. tw2 11:30 EKG completed in triage. Results shown to MD. tw2 11:35 Octavio Mckee MD is Attending Physician. юлия 11:45 Patient has correct armband on for positive identification. systems integration analyst on. Pulse aj1 ox on. NIBP on. 11:45 No provider procedures requiring assistance completed. Patient maintains SpO2 aj1 saturation greater than 95% on room air. 11:46 Christina Chavez RN is Primary Nurse. aj1 11:50 Initial lab(s) drawn, by or, sent to lab. Inserted saline lock: 20 gauge in right aj1 antecubital area, using aseptic technique. Blood collected. 12:29 Prince Thorpe MD is Hospitalizing Provider. [facility] 16:00 Report given to FOSTER Lemos on 4th floor. aj1 16:00 Patient admitted, IV remains in place. aj1 Administered Medications: 12:42 Drug: Pepcid 20 mg Route: IVP; Site: left antecubital; aj1 15:56 Follow up: Response: No adverse reaction aj1 12:42 Drug: Lopressor (metoprolol TARTRATE) 50 mg {Note: BP 182/86 HR 85.} Route: PO; aj1 15:56 Follow up: Response: No adverse reaction aj1 12:43 Drug: fentaNYL (PF) 25 mcg Route: IVP; Site: left antecubital; aj1 15:57 Follow up: Response: No adverse reaction aj1 12:43 Drug: Zofran 4 mg Route: IVP; Site: left antecubital; aj1 15:57 Follow up: Response: No adverse reaction aj1 12:44 Drug: NS 0.9% 1000 ml Route: IV; Rate: 125 ml/hr; Site: left antecubital; aj1 15:58 Follow up: IV Status: Completed infusion; IV Intake: 500ml aj1 13:23 Drug: Magnesium Sulfate 1 grams Route: IVPB; Infused Over: 1 hrs; Site: left aj1 antecubital; 15:55 Follow up: IV Status: Completed infusion; IV Intake: 100ml aj1 13:40 Drug: Lopressor 2.5 mg {Note: BP 162/92 HR 81.} Route: IVP; Site: left antecubital; aj1 15:56 Follow up: Response: No adverse reaction aj1 13:51 Drug: Lopressor 2.5 mg {Note: BP 165/83 HR 77.} Route: IVP; Site: left antecubital; aj1 15:55 Follow up: Response: No adverse reaction aj1 15:54 Not Given (patient has already been admitted upstairs, order placed in [facility] and aj1 communicated to primary nurse FOSTER Lemos on 4th floor): Rocephin 1 grams IV at per protocol once; Given slow IV push per pharmacy instructions 15:57 Not Given (Other Intervention Used): fentaNYL (PF) 25 mcg IVP once; RASS on ADMIN: aj1 Combtv4, Very Agttd3, Agttd2, Rstlss1, AlertClm0, Drwsy-1, Lt Sdtn-2, Mod Sdtn-3, Dp Sdtn-4, UnArsble-5 Intake: 15:55 IV: 100ml; Total: 100ml. aj1 15:58 IV: 500ml; Total: 600ml. aj1 Outcome: 12:30 Decision to Hospitalize by Provider. юлия 16:01 Admitted to Tele accompanied by tech, via wheelchair, with chart. aj1 16:01 Condition: good 16:01 Discharge instructions given to patient, Instructed on the need for admit, Demonstrated understanding of instructions. 16:01 Patient left the ED. aj1 Signatures: Christina Chavez RN RN aj1 Octavio Mckee MD MD cha Martinez, Amelia as Wise, Tara, FOSTER RN tw2 Corrections: (The following items were deleted from the chart) 12:14 12:13 BP 193 / 89; Pulse 82bpm; Resp 16bpm; Pulse Ox 97% RA; aj1 aj1
--- NOTE | 2019-09-13 13:42 | EDPHYS ---
Physician Documentation [facility] Name: Alexandra Mendoza Age: 59 yrs Sex: Female : 1960 Arrival Date: 09/13/2019 Time: 11:26 Bed 25 Private MD: ED Physician Octavio Mckee HPI: 09/13 12:25 This 59 yrs old Female presents to ER via Ambulatory with complaints of Chest юлия Pain, High Blood Pressure. 12:25 The patient or guardian reports chest pain that is located primarily in the substernal юлия area, anterior chest wall, bilaterally. Onset: just prior to arrival, this morning. The pain radiates to back. Associated signs and symptoms: Pertinent positives: diaphoresis, dizziness, shortness of breath. The chest pain is described as aching. Modifying factors: The symptoms are alleviated by nothing. the symptoms are aggravated by nothing. Severity of pain: At its worst the pain was mild in the emergency department the pain. Historical: - Allergies: 11:30 Morphine; tw2 11:30 Sulfa (Sulfonamide Antibiotics); tw2 11:30 Demerol; tw2 - Home Meds: 11:32 levothyroxine 137 mcg tab 1 tab once daily [Active]; fenofibrate oral 145 mg oral tw2 [Active]; lovastatin 10 mg Oral tab 1 tab once daily [Active]; losartan-hydrochlorothiazide 100-12.5 mg oral tab 1 tab once daily [Active]; metformin 1,000 mg Oral tab 1 tab 2 times per day [Active]; alendronate 70 mg/75 mL oral soln 75 mL once wkly [Active]; calcium carbonate 600 mg (1,500 mg) Oral tab [Active]; - PMHx: 11:30 Diabetes - NIDDM; Growth on Thyroid; High Cholesterol; Hypertension; tw2 - PSHx: 11:30 Lap Band; Hysterectomy; Bladder suspension; right foot; right wrist; liver dissection, tw2 left lobe; - Immunization history:: Adult Immunizations. - Social history:: Smoking status: . - Ebola Screening: : Patient denies travel to an Ebola-affected area in the 21 days before illness onset. - Family history:: not pertinent. ROS: 12:25 Constitutional: Negative for fever, chills, and weight loss, Eyes: Negative for injury, юлия pain, redness, and discharge, ENT: Negative for injury, pain, and discharge, Neck: Negative for injury, pain, and swelling, Respiratory: Negative for shortness of breath, cough, wheezing, and pleuritic chest pain, : Negative for injury, bleeding, discharge, and swelling, MS/Extremity: Negative for injury and deformity, Skin: Negative for injury, rash, and discoloration, Neuro: Negative for headache, weakness, numbness, tingling, and seizure, Psych: Negative for depression, anxiety, suicide ideation, homicidal ideation, and hallucinations, Allergy/Immunology: Negative for hives, rash, and allergies, Endocrine: Negative for neck swelling, polydipsia, polyuria, polyphagia, and marked weight changes, Hematologic/Lymphatic: Negative for swollen nodes, abnormal bleeding, and unusual bruising. 12:25 Cardiovascular: Positive for chest pain. 12:25 Abdomen/GI: Positive for nausea and vomiting. 12:25 MS/extremity: Negative for acute changes. Exam: 12:25 Constitutional: This is a well developed, well nourished patient who is awake, alert, юлия and in no acute distress. Head/Face: Normocephalic, atraumatic. Eyes: Pupils equal round and reactive to light, extra-ocular motions intact. Lids and lashes normal. Conjunctiva and sclera are non-icteric and not injected. Cornea within normal limits. Periorbital areas with no swelling, redness, or edema. ENT: Nares patent. No nasal discharge, no septal abnormalities noted. Tympanic membranes are normal and external auditory canals are clear. Oropharynx with no redness, swelling, or masses, exudates, or evidence of obstruction, uvula midline. Mucous membranes moist. Neck: Trachea midline, no thyromegaly or masses palpated, and no cervical lymphadenopathy. Supple, full range of motion without nuchal rigidity, or vertebral point tenderness. No Meningismus. Chest/axilla: Normal chest wall appearance and motion. Nontender with no deformity. No lesions are appreciated. Cardiovascular: Regular rate and rhythm with a normal S1 and S2. No gallops, murmurs, or rubs. Normal PMI, no JVD. No pulse deficits. Respiratory: Lungs have equal breath sounds bilaterally, clear to auscultation and percussion. No rales, rhonchi or wheezes noted. No increased work of breathing, no retractions or nasal flaring. Abdomen/GI: Soft, non-tender, with normal bowel sounds. No distension or tympany. No guarding or rebound. No evidence of tenderness throughout. Back: No spinal tenderness. No costovertebral tenderness. Full range of motion. Skin: Warm, dry with normal turgor. Normal color with no rashes, no lesions, and no evidence of cellulitis. MS/ Extremity: Pulses equal, no cyanosis. Neurovascular intact. Full, normal range of motion. Neuro: Awake and alert, GCS 15, oriented to person, place, time, and situation. Cranial nerves II-XII grossly intact. Motor strength 5/5 in all extremities. Sensory grossly intact. Cerebellar exam normal. Normal gait. Psych: Awake, alert, with orientation to person, place and time. Behavior, mood, and affect are within normal limits. 12:25 Musculoskeletal/extremity: DVT Exam: No signs of deep vein thrombosis. no pain, no swelling, no tenderness, negative Homans' sign noted on exam, no appreciated bluish discoloration, no erythema, no increased warmth. Vital Signs: 11:30 BP 233 / 109; Pulse 88; Resp 17; Temp 97.6(O); Pulse Ox 99% on R/A; Weight 77.11 kg; tw2 Height 5 ft. 1 in. (154.94 cm); Pain 6/10; 11:47 BP 195 / 95; Pulse 83; Resp 14; Pulse Ox 99% on R/A; aj1 12:00 BP 193 / 89; Pulse 82; Resp 16; Pulse Ox 97% on R/A; aj1 12:16 BP 185 / 81; Pulse 84; Resp 14; Pulse Ox 99% on R/A; aj1 12:32 BP 182 / 86; Pulse 82; Resp 14; Pulse Ox 97% on R/A; aj1 13:17 BP 158 / 79; Pulse 86; Resp 14; Pulse Ox 98% on R/A; aj1 14:02 BP 181 / 97; Pulse 72; Resp 13; Pulse Ox 96% on R/A; aj1 14:30 BP 179 / 92; Pulse 71; Resp 18; Pulse Ox 99% on R/A; aj1 15:00 BP 164 / 83; Pulse 69; Resp 18; Pulse Ox 97% on R/A; aj1 15:30 BP 170 / 80; Pulse 67; Resp 18; Pulse Ox 97% on R/A; aj1 11:30 Body Mass Index 32.12 (77.11 kg, 154.94 cm) tw2 MDM: 11:35 Patient medically screened. [facility] 12:27 Data reviewed: vital signs, nurses notes, lab test result(s), EKG, radiologic studies. [facility] 09/13 11:43 Order name: Basic Metabolic Panel; Complete Time: 12:22 [facility] 09/13 11:43 Order name: CBC with Diff [facility] 09/13 11:43 Order name: LFT's; Complete Time: 12:22 [facility] 09/13 11:43 Order name: Magnesium; Complete Time: 12:22 [facility] 09/13 11:43 Order name: NT PRO-BNP; Complete Time: 12:22 [facility] 09/13 11:43 Order name: PT-INR; Complete Time: 12:22 [facility] 09/13 11:43 Order name: Troponin (emerg Dept Use Only); Complete Time: 12:22 [facility] 09/13 11:43 Order name: XRAY Chest (1 view) [facility] 09/13 11:43 Order name: Lipase; Complete Time: 12:22 [facility] 09/13 11:43 Order name: Urine Culture [facility] 09/13 13:59 Order name: TSH [facility] 09/13 14:28 Order name: Thyroid Stimulating Hormone; Complete Time: 15:36 EDIN 09/13 14:55 Order name: Urine Dipstick--Ancillary (enter results) 09/13 15:17 Order name: Urine Dipstick-Ancillary; Complete Time: 15:36 EDIN 09/13 11:43 Order name: EKG; Complete Time: 11:45 [facility] 09/13 11:43 Order name: Cardiac monitoring; Complete Time: 11:46 [facility] 09/13 11:43 Order name: EKG - Nurse/Tech; Complete Time: 11:46 [facility] 09/13 12:25 Order name: CT Aorta for Dissection [facility] 09/13 13:37 Order name: RAD; Complete Time: 14:00 EDIN 09/13 15:24 Order name: CT; Complete Time: 15:36 EDIN 09/13 11:43 Order name: IV Saline Lock; Complete Time: 12:13 [facility] 09/13 11:43 Order name: Labs collected and sent; Complete Time: 12:13 [facility] 09/13 11:43 Order name: O2 Per Protocol; Complete Time: 11:46 [facility] 09/13 11:43 Order name: O2 Sat Monitoring; Complete Time: 11:46 [facility] Administered Medications: 12:42 Drug: Pepcid 20 mg Route: IVP; Site: left antecubital; aj1 15:56 Follow up: Response: No adverse reaction aj1 12:42 Drug: Lopressor (metoprolol TARTRATE) 50 mg {Note: BP 182/86 HR 85.} Route: PO; aj1 15:56 Follow up: Response: No adverse reaction aj1 12:43 Drug: fentaNYL (PF) 25 mcg Route: IVP; Site: left antecubital; aj1 15:57 Follow up: Response: No adverse reaction aj1 12:43 Drug: Zofran 4 mg Route: IVP; Site: left antecubital; aj1 15:57 Follow up: Response: No adverse reaction aj1 12:44 Drug: NS 0.9% 1000 ml Route: IV; Rate: 125 ml/hr; Site: left antecubital; aj1 15:58 Follow up: IV Status: Completed infusion; IV Intake: 500ml aj1 13:23 Drug: Magnesium Sulfate 1 grams Route: IVPB; Infused Over: 1 hrs; Site: left aj1 antecubital; 15:55 Follow up: IV Status: Completed infusion; IV Intake: 100ml aj1 13:40 Drug: Lopressor 2.5 mg {Note: BP 162/92 HR 81.} Route: IVP; Site: left antecubital; aj1 15:56 Follow up: Response: No adverse reaction aj1 13:51 Drug: Lopressor 2.5 mg {Note: BP 165/83 HR 77.} Route: IVP; Site: left antecubital; aj1 15:55 Follow up: Response: No adverse reaction aj1 15:54 Not Given (patient has already been admitted upstairs, order placed in [facility] and aj1 communicated to primary nurse FOSTER Lemos on 4th floor): Rocephin 1 grams IV at per protocol once; Given slow IV push per pharmacy instructions 15:57 Not Given (Other Intervention Used): fentaNYL (PF) 25 mcg IVP once; RASS on ADMIN: aj1 Combtv4, Very Agttd3, Agttd2, Rstlss1, AlertClm0, Drwsy-1, Lt Sdtn-2, Mod Sdtn-3, Dp Sdtn-4, UnArsble-5 Disposition: 09/13/19 12:30 Hospitalization ordered by Prince Maurilio for Inpatient Admission. Preliminary diagnosis are Essential (primary) hypertension, Type 2 diabetes mellitus, Chest pain, unspecified, Vomiting, Hypomagnesemia, Urinary tract infection, site not specified. - Bed requested for Telemetry/MedSurg (Inpatient). - Status is Inpatient Admission. aj1 - Condition is Fair. - Problem is new. - Symptoms have improved. UTI on Admission? Yes Signatures: Dispatcher [employer] EDMS Christina Chavez RN RN aj1 Katia Ludwig RN RN dw Octavio Mckee MD MD cha Wise, Tara, RN RN tw2 Corrections: (The following items were deleted from the chart) 12:35 12:30 Hospitalization Ordered by Prince Maurilio LOZANO for Inpatient Admission. Preliminary юлия diagnosis is Essential (primary) hypertension; Type 2 diabetes mellitus; Chest pain, unspecified; Vomiting. Bed requested for Telemetry/MedSurg (Inpatient). Status is Inpatient Admission. Condition is Fair. Problem is new. Symptoms have improved. UTI on Admission? No. юлия 15:00 12:35 09/13/2019 12:30 Hospitalization Ordered by Prince Maurilio LOZANO for Inpatient dw Admission. Preliminary diagnosis is Essential (primary) hypertension; Type 2 diabetes mellitus; Chest pain, unspecified; Vomiting; Hypomagnesemia. Bed requested for Telemetry/MedSurg (Inpatient). Status is Inpatient Admission. Condition is Fair. Problem is new. Symptoms have improved. UTI on Admission? No. юлия 15:37 15:00 09/13/2019 12:30 Hospitalization Ordered by Prince Maurilio LOZANO for Inpatient юлия Admission. Preliminary diagnosis is Essential (primary) hypertension; Type 2 diabetes mellitus; Chest pain, unspecified; Vomiting; Hypomagnesemia. Bed requested for Telemetry/MedSurg (Inpatient). Status is Inpatient Admission. Condition is Fair. Problem is new. Symptoms have improved. UTI on Admission? No. dw 16:01 15:37 09/13/2019 12:30 Hospitalization Ordered by Prince Maurilio LOZANO for Inpatient aj1 Admission. Preliminary diagnosis is Essential (primary) hypertension; Type 2 diabetes mellitus; Chest pain, unspecified; Vomiting; Hypomagnesemia; Urinary tract infection, site not specified. Bed requested for Telemetry/MedSurg (Inpatient). Status is Inpatient Admission. Condition is Fair. Problem is new. Symptoms have improved. UTI on Admission? Yes. юлия
[2019-09-13] MEDS ORDERED: METOPROLOL TARTRATE 5 MG/5 ML INJ IV ONE (13:44)
--- NOTE | 2019-09-13 15:11 | P.HP ---
Certification for Inpatient Patient admitted to: Observation With expected LOS: <2 Midnights Patient will require the following post-hospital care: None Practitioner: I am a practitioner with admitting privileges, knowledge of patient current condition, hospital course, and medical plan of care. Services: Services provided to patient in accordance with Admission requirements found in Title 42 Section 412.3 of the Code of Federal Regulations Patient History Date of Service: 09/13/19 Reason for admission: hypertensive emergency History of Present Illness: 59 year old female with unknown past medical history of gastric bypass 4 years ago, thyroidectomy for thyroid malignancy 1 year ago, type 2 diabetes mellitus, hypertension, acquired hypothyroidism and hyperlipidemia. She presented the ER with a sudden onset of nonexertional chest pain that started the patient was watching TV. She is describing a left-sided chest pain and that radiated to her left arm and left side of her neck. Associated symptoms included headache and blurry vision. She presented to the ER where she was found to be severely hypertensive with a systolic blood pressure of 220/ 120. EKG was done with no evidence of ST elevation. She received blood pressure medications which brought her SBP to 182. During our on contour, patient was in no distress but still reported mild chest pain. She has no history of coronary artery disease. Allergies Sulfa (Sulfonamide Antibiotics) [Sulfa(Sulfonamide Antibiotics)] Allergy ( Intermediate, Verified 06/30/12 18:52) swelling morphine Allergy (Verified 07/28/18 16:26) Nausea/Vomiting Home Medications: Amlodipine [Norvasc*] 5 mg PO [id number] 07/28/18 Levothyroxine [Synthroid*] 25 mcg PO DAILY 07/28/18 Losartan Potassium 100 mg PO [id number] 07/28/18 Lovastatin 10 mg PO DAILY 07/28/18 Metformin ER [Glucophage ER*] 500 mg PO DAILY 07/28/18 Alendronate Sodium [Fosamax] 70 mg PO EVERY 7TH DAY 09/17/18 Calcium Carbonate [Calcium] 600 mg PO DAILY 09/17/18 - Past Medical/Surgical History Diabetic: Yes -: diabetes -: htn -: osteopenia -: hypothyroid -: hysterectomy 1987 -: lap band 2014 -: cholecystecomy 2004 -: lift liver lobe dissection 2004 -: cyst right wrist 2012 -: right foot bone spur 2007 - Family History Father -: Heart disease, Diabetes Notes: CO's - Social History Alcohol use: Yes CD- Drugs: No Caffeine use: Yes Physical Examination - Physical Exam General: Alert (General: in no acute distress), In no apparent distress (No acute distress) HEENT: Atraumatic (Atraumatic normocephalic. Pupils equal and reactive to light. EOM intact) Respiratory: Clear to auscultation bilaterally (unlabored breathing) Gastrointestinal: Normal bowel sounds (Soft, nontender, nondistended.) Musculoskeletal: No clubbing (Good range of motion in all extremities) Integumentary: No rashes (Skin is warm and well perfused) Neurological: Normal gait (Grossly intact) - Studies Laboratory Data (last 24 hrs) 09/13/19 11:52: PT 12.0, INR 1.02 09/13/19 11:52: WBC 5.3, Hgb 12.0, Hct 35.0 L, Plt Count 288 09/13/19 11:52: Sodium 137, Potassium 3.7, BUN 11, Creatinine 0.79, Glucose 95, Magnesium 1.7 L, Total Bilirubin 0.4, AST 62 H, ALT 76, Alkaline Phosphatase 41 L, Lipase 147 Assessment and Plan - Plan Impression: Patient is a 59-year-old female with a history of gastric bypass, in thyroid malignancy status post thyroidectomy brought into the hospital with hypertensive crisis as evidenced by a systolic blood pressure of 220. Blood pressure stabilized in the ER currently SBP of 180. 1st troponin is negative and EKG without any signs of ischemia. Plan: 1. Under observation with telemetry for ACS rule-out 2. Extensive workup for secondary reason of accelerated hypertension. Given history of thyroid malignancy. Followup TAC 3. Check lipid panel and hemoglobin A1c 4. Resume home medication of losartan and titrate BP meds as tolerated. - Advance Directives Does patient have a Living Will: No Does patient have a Durable POA for Healthcare: No
[2019-09-13 15:16] LABS: Urine Blood NEGATIVE (NEG); Urine Glucose NEGATIVE (NEG); Urine Protein NEGATIVE (NEG)
[2019-09-13] MEDS ORDERED: NITROGLYCERIN 0.4 MG/TAB SL PRN (16:00)
[2019-09-13] MEDS ORDERED: ONDANSETRON 4 MG/2 ML VIAL IV PRN (16:00)
[2019-09-13] MEDS ORDERED: CEFTRIAXONE 1 GM/NS 50 ML 1 GM/50 ML BAG IV ONE (16:00)
[2019-09-13 16:15] LABS: Anisocytosis 1+; Platelet Estimate ADEQ
[2019-09-13 16:16] LABS: Blood Morphology Comment NOTED (NOT SEEN); Poikilocytosis 2+
[2019-09-13 16:22] VITALS: BMI 32.1
[2019-09-13] MEDS ORDERED: MORPHINE 2 MG/ML SYR IV ONE (16:39)
[2019-09-13] MEDS ORDERED: METOPROLOL TARTRATE 5 MG/5 ML INJ IV STA (16:39)
[2019-09-13] MEDS ORDERED: KETOROLAC 30 MG/ML INJ IV ONE (16:44)
[2019-09-13] MEDS ORDERED: CEFTRIAXONE/SWI 1gm 1 GM/10 ML SYR IV ONE (17:00)
[2019-09-13] MEDS: METOPROLOL TAR 25 MG TAB PO SCH (18:38)
[2019-09-13] MEDS ORDERED: HYDRALAZINE HCL 20 MG/ML VIAL IV PRN (18:47)
[2019-09-13] MEDS: ACETAMINOPHEN 500 MG TAB PO PRN (22:40)
[2019-09-13] MEDS: NIFEDIPINE XL 30 MG TABLET PO SCH (22:40)
[2019-09-13] MEDS: ATORVASTATIN 10 MG TAB PO SCH (22:40)
[2019-09-14] MEDS: METOPROLOL TAR 25 MG TAB PO SCH ×2 (06:00→17:50)
[2019-09-14] MEDS: LOSARTAN POTASSIUM 50 MG TABLET PO SCH (06:00)
[2019-09-14] MEDS: ACETAMINOPHEN 500 MG TAB PO PRN (06:18)
[2019-09-14] MEDS: LEVOTHYROXINE SOD 0.05 MG TABLET PO SCH (06:18)
[2019-09-14 06:19] LABS: Absolute Lymphocytes (CBC) 2.9 K/uL (0.7-4.9); Basophils % 1.2 % (0-1.3); Hematocrit 34.2 % (36.0-45.0); Lymphocytes % 51.5 % (15.3-44.8); MPV 9.7 fL (7.6-11.3); RBC Red Blood Cell Count 3.95 M/uL (3.86-4.86)
[2019-09-14 06:23] LABS: Potassium 3.7 mmol/L (3.5-5.1)
[2019-09-14] MEDS: NIFEDIPINE XL 30 MG TABLET PO SCH (08:58)
[2019-09-14] MEDS: ASPIRIN EC 81 MG TAB PO SCH (08:58)
[2019-09-14] MEDS ORDERED: KETOROLAC 30 MG/ML INJ IV ONE (09:02)
[2019-09-14] MEDS ORDERED: VALPROATE SODIUM INJ 500 MG in NA CHLORIDE 0.9% 100 ML IV ONE (09:33)
[2019-09-14] MEDS ORDERED: Magnesium Sulfate 2gm IVPB 2 G/50 ML BAG IV ONE (09:34)
[2019-09-14] MEDS ORDERED: AMITRIPTYLINE 25 MG TAB PO ONE (09:35)
--- NOTE | 2019-09-14 12:53 | RAD REPORT ---
EXAM DESCRIPTION: CT - Abdomen Pelvis W Contrast - 09/13/2019 11:[address] - Abdomen Pelvis W Contrast - 09/13/2019 11:22 pm CLINICAL HISTORY: Abdominal pain. COMPARISON: September 13, 2019 TECHNIQUE: Computed axial tomography of the abdomen and pelvis was obtained. 100 cc Isovue-300 is ad ministered intravenously. Oral contrast was given. All CT scans are performed using dose optimization technique as appropriate and may include automated exposure control or mA/KV adjustment according to patient size. FINDINGS: Mild fatty liver Gastric band with prominent gastric pouch Cholecystectomy. The spleen, adrenals and kidneys appear unremarkable Hysterectomy There is no evidence of diverticulitis Normal appendix IMPRESSION: No acute abnormality displayed
--- NOTE | 2019-09-14 14:12 | RAD REPORT ---
EXAM DESCRIPTION: CT - Head Brain Wo Cont - 09/14/2019 1:53 pm CLINICAL HISTORY: Headache COMPARISON: 2012 TECHNIQUE: Computed axial tomography of the head was obtained. IV contrast was not requested. All CT scans are performed using dose optimization technique as appropriate and may include automated exposure control or mA/KV adjustment according to patient size. FINDINGS: An intracranial bleed is not seen . The ventricles are normal in caliber. No extra-axial fluid collection is noted. Fluid within the sinuses/ mastoids is not seen. IMPRESSION: No acute intracranial abnormality is seen. If patient's symptoms persist MRI of the bra in would be recommended.
--- NOTE | 2019-09-14 15:20 | P.PN ---
Subjective Date of Service: 09/14/19 Chief Complaint: hypertensive emergency Patient is complaining of intractable headache. Failed Toradol, amitriptyline and magnesium sulfate. CT head did not review any evidence of intracranial bleeding Physical Examination - Vital Signs Temperature: 97.6 F Blood Pressure: 139/70 Pulse: 74 Respirations: 16 Pulse Ox (%): 96 - Physical Exam General: Mild distress HEENT: Atraumatic, Normocephalic, EOMI Respiratory: Clear to auscultation bilaterally, Normal air movement Cardiovascular: Normal pulses, Regular rate/rhythm, Normal S1 S2 Gastrointestinal: Normal bowel sounds, Soft and benign, Non-distended Musculoskeletal: No clubbing, No swelling, No erythema, No tenderness Integumentary: Warmth Neurological: Normal gait, Normal speech, Normal affect - Studies Laboratory Data (last 24 hrs) 09/13/19 11:52: WBC 5.3, Hgb 12.0, Hct 35.0 L, Plt Count 288 Assessment & Plan Physician Review Additional Text: Impression: Patient is a 59-year-old female admitted yesterday under observation after she presented with hypertensive emergency are hopeful unknown etiology. Her maximum systolic blood pressure was 230. ACS was ruled out thyroid function tests were within normal limits. She has a history of gastric bypass and thyroid cancer, which was resected recently. Her blood pressures been gradually lowered. CT abdomen and pelvis did not reveal any evidence of adrenal adenomas. She continues to have intractable headaches that failed multiple conservative management. CT head did not reveal any intracranial bleeding. 1. Hypertensive emergency 2. Thyroid malignancy s/p thyroidectomy 3. Hyperlipidemia 4. History of gastric bypass PLAN: 1. Start patient on Fioricet for headache. Add PRN reglan and benadryl on board 2. Continue telemetry with blood pressure and heart rate monitoring 3. Continue home dose of anti-HTN agents 4. Discharge when headache is control
[2019-09-14] MEDS ORDERED: METOCLOPRAMIDE 10 MG/2mL INJ IV PRN (15:21)
[2019-09-14] MEDS ORDERED: DIPHENHYDRAMINE 50 MG/ML VIAL IV ONE (15:25)
--- NOTE | 2019-09-14 16:41 | EKG ---
Test Date: 2019-09-14 Test Time: 09:31:26 Conference Service Coordinator: GISELLE MEASUREMENT RESULTS: Intervals: Rate: 71 DE: 146 QRSD: 84 QT: 444 QTc: 482 [place]: P: 22 DE: 146 QRS: 24 T: 74 INTERPRETIVE STATEMENTS: Normal sinus rhythm Prolonged QT Abnormal ECG Compared to ECG 09/13/2019 11:32:06 T-wave abnormality no longer present Electronically Signed On 09-14-19 16:39:59 REFERENCE INVESTIGATOR by Deven Contreras
[2019-09-14] MEDS: ATORVASTATIN 10 MG TAB PO SCH (22:37)
[2019-09-14] MEDS ORDERED: ACETAMIN/CAFFEINE/BUTALB TAB PO PRN (22:45)
[2019-09-14] MEDS: HYDROMORPHONE HCL 0.5 MG/0.5 ML INJ IV PRN (23:18)
[2019-09-15] MEDS: LOSARTAN POTASSIUM 50 MG TABLET PO SCH (06:00)
[2019-09-15] MEDS: METOPROLOL TAR 25 MG TAB PO SCH (06:00)
[2019-09-15] MEDS: ACETAMINOPHEN 500 MG TAB PO PRN (06:10)
[2019-09-15] MEDS: LEVOTHYROXINE SOD 0.05 MG TABLET PO SCH (06:10)
[2019-09-15 08:09] VITALS: BP 113/53; TEMP 98.8
--- NOTE | 2019-09-15 08:10 | ECHO ---
HEIGHT: 5 ft 1 in WEIGHT: 170 lb 0 oz DATE OF STUDY: 09/14/[address]: Prince Larry Thorpe MD 2-DIMENSIONAL: YES M.MODE: YES DOPPLER: YES COLOR FLOW: YES TDS: NO PORTABLE: NO DEFINITY: NO BUBBLE STUDY: NO DIAGNOSIS: RULE OUT ACUTE CORONARY ARTERY SYNDROME CARDIAC HISTORY: CATHERIZATION: NO SURGERY: NO PROSTHETIC VALVE: NO PACEMAKER: NO MEASUREMENTS (cm) DIASTOLIC (NORMALS) SYSTOLIC (NORMALS) IVSd 1.1 (0.6-1.2) LA Diam 3.2 (1.9-4.0) LVEF 75% LVIDd 3.7 (3.5-5.7) LVIDs 2.1 (2.0-3.5) %FS 43% LVPWd 1.0 (0.6-1.2) Ao Diam 2.3 (2.0-3.7) 2 DIMENSIONAL ASSESSMENT: RIGHT ATRIUM: NORMAL LEFT ATRIUM: NORMAL RIGHT VENTRICLE: NORMAL LEFT VENTRICLE: NORMAL TRICUSPID VALVE: NORMAL MITRAL VALVE: NORMAL PULMONIC VALVE: NORMAL AORTIC VALVE: NORMAL PERICARDIAL EFFUSION: NONE AORTIC ROOT: NORMAL LEFT VENTRICULAR WALL MOTION: NORMAL. DOPPLER/COLOR FLOW: NORMAL. COMMENTS: NORMAL 2D ECHO WITH DOPPLER. NO WALL MOTION ABNORMALITY. NO EFFUSION. TECHNOLOGIST: MIRANDA AMES
[2019-09-15 08:49] VITALS: O2SAT 93
[2019-09-15] MEDS: HYDROMORPHONE HCL 0.5 MG/0.5 ML INJ IV PRN (08:57)
[2019-09-15] MEDS ORDERED: FENOFIBRATE 160 MG TAB PO SCH (09:00)
[2019-09-15] MEDS: NIFEDIPINE XL 30 MG TABLET PO SCH (09:00)
[2019-09-15] MEDS: NITROFURAN MACRO 100 MG CAP PO SCH ×2 (09:00→10:25)
--- NOTE | 2019-09-15 09:54 | P.DS ---
Admission Date: 09/13/19 Discharge Date: 09/15/19 Disposition: ROUTINE DISCHARGE Discharge Condition: GOOD Reason for Admission: hypertensive emergency Brief History of Present Illness: 59 year old female with unknown past medical history of gastric bypass 4 years ago, thyroidectomy for thyroid malignancy 1 year ago, type 2 diabetes mellitus, hypertension, acquired hypothyroidism and hyperlipidemia. She presented the ER with a sudden onset of nonexertional chest pain that started the patient was watching TV. She is describing a left-sided chest pain and that radiated to her left arm and left side of her neck. Associated symptoms included headache and blurry vision. She presented to the ER where she was found to be severely hypertensive with a systolic blood pressure of 220/ 120. EKG was done with no evidence of ST elevation. She received blood pressure medications which brought her SBP to 182. During our on contour, patient was in no distress but still reported mild chest pain. She has no history of coronary artery disease. Hospital Course: Patient was admitted with a working diagnosis of hypertensive emergency as evidenced by ongoing chest pain. Her SBP was 220. ACS was ruled out. Her thyroid function test was within normal limits. Her echocardiogram revealed a left ventricular ejection fraction 75%. No wall motion abnormality. Patient hospital course was complicated by intractable headache. Was concerned for pheochromocytoma especially in the setting of thyroid malignancy. A CT abdomen and pelvis showed normal adrenal glands. A CT scan of the head did not reveal any intracranial bleeding. She responded to a trial of headache cocktail medications the last 24 hr. She will be discharged with a plan to follow-up with an preventive maintenance engineer for additional workup. This can be arranged through her PCP. Of note, her urine culture revealed evidence of Klebsiella pneumonia. She will be treated with a short course of nitrofurantoin Vital Signs/Physical Exam: Temp Pulse Resp BP Pulse Ox 98.8 F 80 16 113/53 L 97 09/15/19 08:00 09/15/19 09:00 09/15/19 08:00 09/15/19 09:00 09/15/19 08:00 General: Alert, Cooperative, Mild distress HEENT: Atraumatic, Normocephalic, EOMI Neck: Supple Respiratory: Clear to auscultation bilaterally, Normal air movement Cardiovascular: No edema, Normal pulses, Regular rate/rhythm, Normal S1 S2 Gastrointestinal: Normal bowel sounds, Soft and benign, Non-distended Musculoskeletal: No swelling, No erythema, No tenderness Integumentary: Warmth Neurological: Normal speech, Normal affect Laboratory Data at Discharge: WBC 5.6 K/uL (4.3-10.9) 09/14/19 05:34 Hgb 11.7 g/dL (12.0-15.0) L 09/14/19 05:34 Hct 34.2 % (36.0-45.0) L 09/14/19 05:34 Plt Count 285 K/uL (152-406) 09/14/19 05:34 PT 12.0 SECONDS (9.5-12.5) 09/13/19 11:52 INR 1.02 09/13/19 11:52 Sodium 139 mmol/L (136-145) 09/14/19 05:34 Potassium 3.7 mmol/L (3.5-5.1) 09/14/19 05:34 BUN 13 mg/dL (7-18) 09/14/19 05:34 Creatinine 0.99 mg/dL (0.55-1.3) 09/14/19 05:34 Glucose 142 mg/dL (74-106) H 09/14/19 05:34 Magnesium 2.1 mg/dL (1.8-2.4) 09/14/19 09:45 Total Bilirubin 0.4 mg/dL (0.2-1.0) 09/13/19 11:52 AST 62 U/L (15-37) H 09/13/19 11:52 ALT 76 U/L (12-78) 09/13/19 11:52 Alkaline Phosphatase 41 U/L (45-117) L 09/13/19 11:52 Troponin I < 0.02 ng/mL (0.0-0.045) 09/13/19 20:16 Triglycerides 218 mg/dL (<150) H 09/14/19 05:34 Cholesterol 194 mg/dL (<200) 09/14/19 05:34 HDL Cholesterol 41 mg/dL (40-60) 09/14/19 05:34 Cholesterol/HDL Ratio 4.73 09/14/19 05:34 Lipase 147 U/L (73-393) 09/13/19 11:52 Home Medications: Levothyroxine [Synthroid*] 137 mcg PO DAILY 07/28/18 Losartan Potassium 100 mg PO [id number] 07/28/18 Lovastatin 10 mg PO DAILY 07/28/18 Metformin ER [Glucophage ER*] 100 mg PO BID 07/28/18 Calcium Carbonate [Calcium] 600 mg PO DAILY 09/17/18 Alendronate Sodium [Fosamax] 70 mg PO EVERY 7TH DAY 09/13/19 Escitalopram [Lexapro*] 10 mg PO BEDTIME 09/13/19 Fenofibrate [Tricor*] 145 mg PO DAILY 09/13/19 Acetam/Caff/Butal [Fioricet*] 1 tab PO Q6H PRN #20 tab 09/15/19 Metoprolol Tartrate [Lopressor*] 25 mg PO BID 6AM 6PM #60 tab 09/15/19 Nifedipine Xl [Procardia Xl*] 30 mg PO DAILY #30 tab 09/15/19 Nitrofuran Macro [Macrobid*] 100 mg PO BID #6 cap 09/15/19 New Medications: Acetam/Caff/Butal [Fioricet*] 1 tab PO Q6H PRN #20 tab PRN Reason: Pain Scale 5-7 (Moderate) Metoprolol Tartrate [Lopressor*] 25 mg PO BID 6AM 6PM #60 tab Nifedipine Xl [Procardia Xl*] 30 mg PO DAILY #30 tab Nitrofuran Macro [Macrobid*] 100 mg PO BID #6 cap Patient Discharge Instructions: Please follow up with an preventive maintenance engineer for evaluation of Pheochromocytoma. This can be arranged by our PCP Time spent managing pt's care (in minutes): 40
[2019-09-15] MEDS: ASPIRIN EC 81 MG TAB PO SCH (10:24)
[2019-09-15] MEDS ORDERED: ESCITALOPRAM 20 MG TAB PO SCH (21:00)
== END 2019-09-15 11:32 | disposition home or self-care (01) ==
LOC: ER 11:24 → ERHOLD 14:44 → 4TH 15:37
PROVIDERS: ADMIT Internal Medicine; ATTEND Internal Medicine
DX: I16.1 Hypertensive emergency (principal); N39.0 Urinary tract infection, site not specified; B96.1 Klebsiella pneumoniae [K. pneumoniae] as the cause of diseases classified elsewhere; R07.9 Chest pain, unspecified; R51 Headache; E89.0 Postprocedural hypothyroidism; E11.9 Type 2 diabetes mellitus without complications; E78.5 Hyperlipidemia, unspecified; Z98.84 Bariatric surgery status; Z85.850 Personal history of malignant neoplasm of thyroid
CPT/HCPCS: 96365; 96361; 93005 ×2; 93306; 87088; 85025 ×2; 87086; 80048 ×2; 36415; 83735 ×2; 85610; 80061; 82947 ×7; 80076; 84443 ×2; 87077; 87186; 81003; 83036; 84484 ×3; 84439; 83690; 80177; 83880; 70450; 71275; 74175; 74177; 71045; 96375; 99285; 96366; Q9967 ×2; J0360; J3010; J3475 ×2; J1170 ×2; J0696; J2405 ×2; G0378 ×4; J1200

== ENCOUNTER 2020-05-19 08:10 | Day surgery (SDC) | payer BC ==
--- NOTE | 2020-05-16 20:00 | EKG ---
Test Date: 2020-05-16 Test Time: 11:20:04 Press Room Supervisor: Lukas Soni MEASUREMENT RESULTS: Intervals: Rate: 65 OK: 128 QRSD: 82 QT: 402 QTc: 418 [place]: P: 7 OK: 128 QRS: 82 T: 131 INTERPRETIVE STATEMENTS: Normal sinus rhythm Low voltage QRS Borderline ECG Compared to ECG 09/14/2019 09:31:26 Low QRS voltage now present Prolonged QT interval no longer present Electronically Signed On 05-16-20 19:59:15 CDT by Deven Contreras
[2020-05-19] MEDS ORDERED: NA CHLORIDE 0.9% 1,000 ML ONE ×2 (08:44→13:26)
[2020-05-19] MEDS: OXYMETAZOLINE HCL 0.05% 15ML NAS ONE ×3 (10:33→11:03)
[2020-05-19] MEDS ORDERED: NA CHLORIDE 0.9% 500 ML ONE (11:45)
[2020-05-19] MEDS ORDERED: OXYMETAZOLINE HCL 0.05% 15ML NAS ONE (11:45)
[2020-05-19] MEDS ORDERED: LIDOCAINE 1% W/EPI 1:100,000 MDV 20 ML VIAL ONE (11:45)
[2020-05-19] MEDS ORDERED: MIDAZOLAM HCL 2 MG/2 ML INJ ONE (11:52)
[2020-05-19] MEDS ORDERED: FENTANYL CITR 100 MCG/2 ML ONE ×2 (11:52→12:00)
[2020-05-19] MEDS ORDERED: ROCURONIUM 50 MG/5 ML VIAL IV ONE (11:52)
[2020-05-19] MEDS ORDERED: LIDOCAINE 1% MPF 5 ML VIAL ONE (11:52)
[2020-05-19] MEDS ORDERED: propofoL 200 MG/20 ML VIAL IV ONE (11:52)
[2020-05-19] MEDS ORDERED: EPHEDRINE SULF 50 MG/ML VIAL ONE (12:25)
[2020-05-19] MEDS ORDERED: NS 0.9% VIAL 10 ML ONE (12:25)
[2020-05-19] MEDS ORDERED: dexAMETHasone 10 MG/ML VIAL ONE (12:27)
[2020-05-19] MEDS ORDERED: KETOROLAC 30 MG/ML INJ ONE (12:28)
[2020-05-19] MEDS ORDERED: ONDANSETRON 4 MG/2 ML VIAL ONE ×2 (12:33→13:48)
[2020-05-19] MEDS ORDERED: GLYCOPYRROLATE 0.2 MG/ML SYR ONE (13:19)
[2020-05-19] MEDS ORDERED: NEOSTIGMINE 1 MG/ML -5 ML ONE (13:19)
--- NOTE | 2020-05-19 13:45 | P.BOP ---
Preoperative diagnosis: nasal obstruction, turbinate hypertrophy, skin neoplasm uncertain behavior Postoperative diagnosis: same, basal cell carcinoma right cheek Primary procedure: bilateral middle turbinate reduction, submucous IT reduction Secondary procedure: excision right cheek 1.5mm with FS, layered closure right cheek Environmental Advisor: NONE,NONE Estimated blood loss: 30ml Specimen: Right cheek and new 12 oclock margin Anesthesia: General Complications: None Implants: Xerogel and Ultrafoam (dissolvable nasal dressings) Transferred to: Recovery Room Condition: Good
[2020-05-19 13:55] VITALS: TEMP 97; O2SAT 99
[2020-05-19 14:23] VITALS: BP 135/62
--- NOTE | 2020-05-19 20:38 | OP ---
Date of Procedure: 05/19/2020 Surgeon: Susan Kim MD Preoperative Diagnoses: Nasal obstruction and right cheek skin lesion of uncertain behavior. Postoperative Diagnoses: Nasal obstruction and right cheek skin lesion of uncertain behavior with basal cell carcinoma, right cheek. Procedure: Bilateral middle turbinate reduction, bilateral submucous resection of inferior turbinates, and excision of right cheek malignancy total defect 1.5 cm with layered closure, total length of incision 2.5 cm. Indication For Procedure: Ms. Alexandra Mendoza presented to the clinic with complaint of severe nasal obstruction. She was treated with intranasal steroid for greater than 4 weeks with no improvement. A previous head CT scan demonstrated normal frontal ethmoid and maxillary sinuses. On examination, the patient did not have significant septal deviation but had significant enlargement of the inferior and middle turbinates. She was also noted to have internal nasal collapse with forced inspiration, but placement of LATERA implants for correction of her nasal valve defect was not approved by her insurance. Plan was made for the above-noted procedure on the nose. At the time of her preoperative visit, she was noted to have a new lesion on the right cheek, which was clinically suspicious for basal cell carcinoma based on appearance. The risks, benefits, and alternatives of the procedure were discussed with the patient, who agreed to proceed. Description Of Procedure: The patient was brought to the operating room. She was placed under general anesthesia via oral endotracheal tube. The head of bed was turned 90 degrees. The area of the right cheek around the lesion of concern was injected with 1% lidocaine with epinephrine. The face was then prepped with Betadine and draped in a sterile fashion. The lesion measured approximately 5 mm. A 3-4 mm gross margin was designed around the lesion and a circular excision was performed using a needlepoint Bovie electrocautery. The specimen was marked with a suture at the superior most aspect indicating 12 o'clock. The full-thickness skin was excised down to the layer of adipose tissue and the specimen was sent to pathology for frozen section analysis. The cheek including the skin defect was then covered with a sterile towel, secured with towel clips, and the intranasal portion of the procedure was initiated. A 0-degree endoscope was used to perform a nasal endoscopy. The bilateral middle and inferior turbinates were noted to be enlarged and edematous with excessive mucosa. There was no significant sign of erythema, purulence, or polyps. At this point in time, the microdebrider was fitted with the inferior turbinate blade. The microdebrider was then used to remove excess and edematous mucosa from the lateral and inferior aspect of the right and left middle turbinates. There was no significant todd bullosa noted and the enlargement was primarily due to soft tissue alone. After conservative resection, the middle meatus was packed with Afrin-soaked pledgets and attention was turned to the inferior turbinates. The turbinates were injected with 1% lidocaine with epinephrine. A stab incision was made in the head of the inferior turbinate using a 15-blade scalpel. The Piute elevator was then used to develop a submucosal pocket within each of the turbinates. The microdebrider was used to remove excessive soft tissue from the medial aspect of the inferior turbinates including channel at the inferior aspect. There was overall excellent preservation of the mucosal surface of the turbinate. Following soft tissue excision, a curette was used to downfracture the inferior turbinate in order to improve the nasal airway. After suctioning the nasal airway, it was noted to be significantly more opened from the visual aspect. All pledgets were removed and the area was examined and appeared to be hemostatic. A XeroGel dissolvable sinus dressing was divided in 2 and each half was placed into the middle meatus to aid in hemostasis along the raw surface of the middle turbinate. The XeroGel dressings were soaked with saline according to speed runner instructions. An UltraFoam dissolvable nasal dressing was cut to approximately 2 x 6 cm and placed within the nasal cavity along the inferior turbinate to aid in hemostasis within these areas. No suture closure was required. Once the nasal portion of the procedure was completed, intraoperative consultation with the pathologist was performed. She confirmed that the lesion of the right cheek was indeed a basal cell carcinoma. The margins appeared negative; however, there was a small area on the 12 o'clock margin, which was mildly suspicious with some inflammatory changes and possibly associated with a hair follicle, but due to mild level of suspicion on the part of the pathologist, a new 12 o'clock margin was cut and sent for permanent section. The true margin was marked with surgical ink. A resulting defect of the right cheek was 11 x 15 mm encompassing the full thickness skin of the medial cheek and located at the medial aspect of the cheek with the medial most aspect adjacent to the crease between the nasal sidewall and the cheek. Reconstruction options were considered and a tissue advancement was selected. The surrounding tissues were undermined using Bovie electrocautery until adequate mobilization of the cheek skin was feasible, about 2 cm. The cheek was advanced medially and secured using 4-0 Vicryl deep sutures. A Burow's triangle was then excised superiorly and inferiorly in order to allow for better closure of the skin. Additional Vicryl sutures were applied to reduce tension on the wound. The epidermal closure using a 5-0 fast-absorbing gut running suture was then performed. Direct pressure was applied to the wound to aid in hemostasis. The face was cleaned and dried, and triple antibiotic ointment was applied to the patient's external incision. The patient was then returned to care of Anesthesia for awakening, extubation, which proceeded without difficulty. Disposition: The patient will be discharged home later today with nasal precautions, nasal saline and routine wound care for the cheek. She will follow up with Dr. Kim in 10 days for preoperative evaluation and assessment. Of note, the patient's preoperative NOSE score was 95. JOELLEN/ZIA Voice ID: [id number] Report ID: [id number] ROSA
== END 2020-05-19 14:55 | disposition home or self-care (01) ==
LOC: OR 08:10
PROVIDERS: ATTEND Otolaryngology
PROC: 095L8ZZ Destruction of Nasal Turbinate, Via Natural or Artificial Opening Endoscopic (ICD-10-PCS; 2020-05-19)
PROC: 0HX1XZZ Transfer Face Skin, External Approach (ICD-10-PCS; 2020-05-19)
PROC: 09BL8ZZ Excision of Nasal Turbinate, Via Natural or Artificial Opening Endoscopic (ICD-10-PCS; principal; 2020-05-19 10:00)
DX: J34.3 Hypertrophy of nasal turbinates (principal); J34.89 Other specified disorders of nose and nasal sinuses; C44.319 Basal cell carcinoma of skin of other parts of face; Z20.828 Contact with and (suspected) exposure to other viral communicable diseases; E78.00 Pure hypercholesterolemia, unspecified; I10 Essential (primary) hypertension; R73.03 Prediabetes; Z79.84 Long term (current) use of oral hypoglycemic drugs; Z79.899 Other long term (current) drug therapy
CPT/HCPCS: 93005; 82947 ×2; 88331 ×2; 88332; 88305; 30140; 30801; 14040; U0002; J2704; J2250; J3010; J1100; J2710; J7040; J7030 ×2; J2405 ×2

== ENCOUNTER 2022-05-21 10:03 | Emergency (ER) | payer BC ==
--- OUTSIDE RECORDS SUMMARY | 2022-05-21 10:06 | XMS REPORT | Continuity of Care Document ---
:1960 Author Organization [facility] t Address [address] [place] [address] Care Team Providers Name Role Phone Lio Bermudez Attending Clinician Unavailable Physician, No Primary or Family Admitting Clinician Unavaila ble Payers Payer Name Policy Type Policy Number Effective Date Expiration Date S ource Problems This patient has no known problems. Allergies, Adverse Reactions, Alerts Allergy Allergy Status Severity Reaction(s) Onset Inactive Treating Comm ents Source Name Type Date Date Clinician Sulfa DA Active SV 2016-09 [facility] (Sulfona 1-03 Clear mide 00:00: Flanagan Antibiot 00 [facility] Sulfa DA Active SV JOINTS 2016-09 [facility] (Sulfona STIFFEN 1-03 Clear mide SWELLING 00:00: Flanagan Antibiot HIVES 00 [facility]) [facility] Medications This patient has no known medications. Procedures This patient has no known procedures. Encounters Start End Encounter Admission Attending Care Care Encounter Source Date/Time Date/Time Type Type Clinicians Facility Department ID 2020-08-08 Inpatient EL Lio Bermudez [facility] [id number] [facility] 00:10:00 76 [facility] 2020-07-27 [facility] [id number] [facility] 10:44:00 87 [facility] Results This patient has no known results.
[2022-05-21] MEDS ORDERED: NA CHLORIDE 0.9% 1,000 ML ONE (10:45)
[2022-05-21] MEDS ORDERED: FENTANYL CITR 100 MCG/2 ML ONE ×2 (10:45→12:35)
[2022-05-21] MEDS ORDERED: ONDANSETRON 4 MG/2 ML VIAL ONE (10:45)
[2022-05-21 11:14] LABS: Absolute Lymphocytes (CBC) 2.4 K/uL (0.7-4.9); Hematocrit 35.2 % (36.0-45.0); Lymphocytes % 34.5 % (15.3-44.8); MCV 84.3 fL (80-100); MPV 9.2 fL (7.6-11.3); RBC Red Blood Cell Count 4.18 M/uL (3.86-4.86)
[2022-05-21 11:36] LABS: SARS-CoV-2 Antigen Rapid Res Negative (Negative)
[2022-05-21 11:39] LABS: Bilirubin Direct 0.1 mg/dL (0-0.2); Bilirubin Total 0.3 mg/dL (0.2-1.0); Potassium 3.7 mmol/L (3.5-5.1); Protein, Total 7.4 g/dL (6.4-8.2)
--- NOTE | 2022-05-21 12:24 | RAD REPORT ---
EXAM DESCRIPTION: CT - Head C Spine Cap Tatiana Dowd - 05/21/2022 12:00 pm CLINICAL HISTORY: fall, head, neck, chest and abdomen pain COMPARISON: No comparisons TECHNIQUE: Axial [address] head images were obtained. Axial [address] cervical spine images were obtaine d with sagittal and coronal reconstruction images reviewed. During dynamic enhancement of 100mL non-i onic contrast, axial 5 mm images of the chest, abdomen and pelvis were obtained. Biphasic technique p erformed of the abdomen and pelvis. All CT scans are performed using dose optimization technique as appropriate and may include automated exposure control or mA/KV adjustment according to patient size. FINDINGS: No intracranial hemorrhage, mass or edema. No significant atrophy or chronic ischemic brown ge. Artifacts are present along the inner table of the skull in the posterior fossa. No midline shift or abnormal fluid collection. Mastoid air cells and paranasal sinuses are clear. No skull fracture . CT cervical spine imaging shows normal height. Normal alignment of the vertebrae. Minimal disc space narrowing C5-6. Uncovertebral joint hypertrophy and facet degenerative changes present C4-6 range. No significant stenoses. No paraspinal mass or hematoma seen. Central canal detail is inherently limite d. Concerns for traumatic disc herniation or traumatic cord injury can be further addressed with MR hortencia rodriguez. CT chest shows no pneumothorax, pulmonary contusion or pleural fluid collection. No mediastinal hemat leeanne and the aorta and pulmonary arteries are unremarkable. No chest will mass or abnormal axillary fi nding. No displaced rib fracture or other significant bony finding. Borderline to mild fatty infiltration present in the liver with no acute liver finding. Spleen and pa ncreas also unremarkable. Cholecystectomy clips are present. No biliary tree dilatation. Lap band is in place. No acute bowel finding. No peritoneal free air, free fluid or stranding. No retroperitoneal hematoma or acute finding. Renal function is symmetric and normal in appearance. No urinary bladder abnormality seen. Uterus is absent. Ovaries are absent or atrophic. Patient has extensive midthoracic endplate spurring and bridging ossification. No fracture of the jarret rnum. A triangular-shaped fractures present in the anterior superior L1 body. Posterior wall height i s preserved. No pedicle or posterior element involvement. No measurable height loss. Remaining lumbar vertebrae show no acute findings. Advanced degenerative change present at the L5-S1 disc level. Mild foraminal stenosis is present at this level. No fracture of the pelvis. No hip joint or proximal femur acute finding. No significant vascular finding. IMPRESSION: No hemorrhage, edema or acute CT Head finding. Cervical spine degenerative changes are present with no acute finding. No significant CT Chest finding. No acute traumatic injury to the soft tissues of the abdomen or pelvis. Fracture of the anterior superior aspect of L1 with no overall loss in height. Posterior wall height is preserved. No L1 pedicle or posterior element involvement.
--- NOTE | 2022-05-21 12:35 | ER ---
Nurse's Notes [facility] Name: Alexandra Mendoza Age: 62 yrs Sex: Female : 1960 Arrival Date: 05/21/2022 Time: 10:20 Bed 6 Private MD: Diagnosis: Fall on same level, unspecified;Fracture of first lumbar vertebra-anterior;Unspecified kidney failure-renal insufficency Presentation: 05/21 10:07 Chief complaint: EMS states: Pt was on a trailer assisting in moving a couch off when vg1 lost footing and tripped off the trailer landing on buttocks on hitting back of head; pt denies LOC and blood thinners. Pt c/o Left Hip pain, headache, neck pain and back pain. 10:07 Method Of Arrival: EMS: [facility] 10:07 Coronavirus screen: Vaccine status: Patient reports receiving the 2nd dose of the covid vg1 vaccine. Client denies travel out of the [place] in the last 14 days. Ebola Screen: Patient denies exposure to infectious person. Patient denies travel to an Ebola-affected area in the 21 days before illness onset. Initial Sepsis Screen: Does the patient meet any 2 criteria? No. Patient's initial sepsis screen is negative. Does the patient have a suspected source of infection? No. Patient's initial sepsis screen is negative. Risk Assessment: Do you want to hurt yourself or someone else? Patient reports no desire to harm self or others. Onset of symptoms was May 21, 2022. Care prior to arrival: Cervical collar in place. Placed on backboard. Medication(s) given: Normal saline infusion, 250 mL zofran 4 mg, Ketamine 25 mg IVP IV initiated. 20 GA, in the right antecubital area, Glucose check: 223. 10:07 Acuity: RAY 2 1 10:07 Mechanism of Injury: Fall down 2 steps. Trauma event details: Injury occurred in the [address] 10:33 Care prior to arrival: [facility] Triage Assessment: 10:07 General: Appears uncomfortable, Behavior is cooperative, crying. Pain: Complains of [facility] pain in left hip, neck, head, back Pain currently is 5 out of 10 on a pain scale. Pain began 1 hour ago. Noted to be crying, moaning. EENT: No signs and/or symptoms were reported regarding the EENT system. Neuro: Level of Consciousness is awake, alert, obeys commands, Oriented to person, place, time, situation. Cardiovascular: Patient's skin is warm and dry. Respiratory: Airway is patent Respiratory effort is even, unlabored, Breath sounds are clear bilaterally. GI: No signs and/or symptoms were reported involving the gastrointestinal system. Abdomen is round non-distended, Abd is soft and non tender X 4 quads. : No signs and/or symptoms were reported regarding the genitourinary system. Derm: Skin is pink, warm \T\ dry. Musculoskeletal: Circulation, motion, and sensation intact. Trauma Activation: Physician: ED Physician; Name: SUSANNA; Notified At: ; Arrived At: Physician: General Surgeon; Name: ; Notified At: ; Arrived At: Physician: Radiology; Name: ; Notified At: ; Arrived At: Physician: Respiratory; Name: ; Notified At: ; Arrived At: Physician: Lab; Name: ; Notified At: ; Arrived At: Historical: - Allergies: 10:21 Morphine; tp1 10:21 Sulfa (Sulfonamide Antibiotics); tp1 - Home Meds: 12:12 metformin 1,000 mg Oral tab 1 tab 2 times per day [Active]; lovastatin 10 mg Oral tab 1 tp1 tab once daily [Active]; losartan-hydrochlorothiazide 100-12.5 mg Oral tab 1 tab once daily [Active]; levothyroxine 137 mcg tab 1 tab once daily [Active]; calcium carbonate 600 mg (1,500 mg) Oral tab [Active]; fenofibrate 145 mg Oral [Active]; alendronate 70 mg/75 mL Oral soln 75 mL once wkly [Active]; 12:53 metoprolol tartrate-hydrochlorothiazide oral [Active]; amlodipine oral [Active]; tp1 gabapentin oral [Active]; sertraline oral [Active]; - PMHx: 10:21 Diabetes - NIDDM; High Cholesterol; Hypertension; Growth on Thyroid; tp1 - Immunization history:: Client reports receiving the 2nd dose of the Covid vaccine. - Social history:: Smoking status: Patient denies any tobacco usage or history of. - Immunization history: Last tetanus immunization: unknown. Screenin:07 Abuse screen: Denies threats or abuse. Tuberculosis screening: No symptoms or risk vg1 factors identified. 10:07 Nutritional screening: No deficits noted. Fall Risk Fall in past 12 months (25 points). vg1 No secondary diagnosis (0 pts). IV access (20 points). Ambulatory Aid- None/Bed Rest/Nurse Assist (0 pts). Gait- Normal/Bed Rest/Wheelchair (0 pts) Mental Status- Oriented to own ability (0 pts). Total Mckeon Fall Scale indicates High Risk Score (45 or more points). Fall prevention measures have been instituted. Side Rails Up X 2 Placed Close to Nursing Station Family Present and informed to notify staff if the need to leave the bedside As available patient and family educated on Fall Prevention Program and Strategies. Primary Survey: 10:07 NO uncontrolled hemorrhage observed. vg1 10:07 A: The client is awake and alert. The airway is patent. The client is alert. vg1 Breathing/Chest: Spontaneous respiratory effort, equal unlabored respirations, breath sounds clear bilaterally, regular pattern, symmetrical chest rise and fall. Respiratory effort: spontaneous, Breath sounds: clear, bilaterally. Circulation: No external hemorrhage present. Regular and strong central pulse, skin warm/dry/normal color. Disability Client is alert. Exposure/Environment: All clothing and personal items were removed. Forensic evidence collection is not deemed to be indicated at this time. Items placed in patient belonging bag. There is no evidence of uncontrolled external bleeding. No obvious injuries are noted at this time. pt c/o Left hip pain, neck pain, back pain, and headache. 10:30 Reassessment Alertness and Airway: Awake and alert. The airway is patent. Breathing: vg1 Spontaneous respiratory effort, equal unlabored respirations, breath sounds clear bilaterally, regular pattern with symmetrical chest rise and fall. Circulation: No external hemorrhage noted. Regular and strong central pulse, skin warm/dry/normal color. Disability: Alert. Secondary Survey: 10:07 HEENT: No deficits noted. Head No injury/deformity Face No injury/deformity. vg1 Gastrointestinal: No deficits noted. Abdomen is soft, non-distended. : No signs and/or symptoms were reported regarding the genitourinary system. Musculoskeletal: Circulation, motion, and sensation intact. Assessment: 10:07 Reassessment: SEE TRIAGE ASSESSMENT. General: Appears uncomfortable, Behavior is vg1 cooperative, crying. 11:15 Reassessment: Patient appears in no apparent distress at this time. No changes from tp1 previously documented assessment. Patient is alert, oriented x 3, equal unlabored respirations, skin warm/dry/pink. rated head and back pain 5/10. at bedside. 12:10 Reassessment: Patient appears in no apparent distress at this time. No changes from tp1 previously documented assessment. Patient is alert, oriented x 3, equal unlabored respirations, skin warm/dry/pink. rates pain 7/10, provider notified. 12:18 Reassessment: received VO from Dr. Mckee to administer Fentnyl 25 mcg IV X1. tp1 12:28 Reassessment: SUSANNA at bedside, C-collar removed. tp1 Vital Signs: 10:07 BP 167 / 79; Pulse 92; Resp 20; Temp 97.9(O); Pulse Ox 97% on R/A; Weight 68.04 kg; vg1 Height 5 ft. 1 in. (154.94 cm); Pain 5/10; 11:06 BP 176 / 87; Pulse 90; Resp 17; Pulse Ox 94% on R/A; tp1 11:33 BP 176 / 87; Pulse 89; Pulse Ox 98% on R/A; ap3 12:00 BP 178 / 83; Pulse 87; Resp 15; Pulse Ox 97% on R/A; tp1 12:30 BP 183 / 79; Pulse 87; Resp 12; Pulse Ox 99% on R/A; ld1 12:45 BP 173 / 89; Pulse 85; Resp 15; Pulse Ox 100% on R/A; tp1 10:07 Body Mass Index 28.34 (68.04 kg, 154.94 cm) vg1 Alvarado Coma Score: 10:07 Eye Response: spontaneous(4). Verbal Response: oriented(5). Motor Response: obeys vg1 commands(6). Total: 15. Trauma Score (Adult): 10:07 Eye Response: spontaneous(1); Verbal Response: oriented(1); Motor Response: obeys vg1 commands(2); Systolic BP: > 89 mm Hg(4); Respiratory Rate: 10 to 29 per min(4); Alvarado Score: 15; Trauma Score: 12 ED Course: 10:07 Arm band placed on. vg1 10:07 Patient has correct armband on for positive identification. Bed in low position. Call vg1 light in reach. Side rails up X2. Adult w/ patient. 10:07 Patient maintains SpO2 saturation greater than 95% on room air. vg1 10:20 Patient arrived in ED. юлия 10:20 Octavio Mckee MD is Attending Physician. юлия 10:20 Ivy Zuniga, RN is Primary Nurse. tp1 10:26 Triage completed. vg1 10:31 Thermoregulation: warm blanket given to patient. vg1 12:01 CT Traumagram (Head C Spine CAP W Con) In Process Unspecified. EDMS 12:34 Yvon Larson MD is Referral Physician. юлия 12:38 No provider procedures requiring assistance completed. ld1 13:04 IV discontinued, intact, bleeding controlled, No redness/swelling at site. Pressure tp1 dressing applied. 13:35 Primary Nurse role handed off by Ivy Zuniga, FOSTER bd Administered Medications: 10:37 Drug: NS 0.9% 1000 ml Route: IV; Rate: 1 bolus; Site: right antecubital; tp1 13:02 Follow up: IV Status: Completed infusion; IV Intake: 900ml tp1 10:39 Drug: Zofran (Ondansetron) 4 mg Route: IVP; Site: right antecubital; tp1 11:00 Follow up: Response: No change in condition tp1 10:42 Drug: fentaNYL (PF) 50 mcg Route: IVP; Site: right antecubital; tp1 11:00 Follow up: Response: Pain is decreased tp1 11:26 Drug: fentaNYL (PF) 25 mcg Route: IVP; Site: right antecubital; ld1 13:02 Follow up: Response: Pain is unchanged, physician notified tp1 13:01 Drug: Valium (diazepam) 10 mg Route: PO; tp1 13:02 Follow up: Response: Medication administered at discharge. tp1 Medication: 12:38 VIS not applicable for this client. ld1 Intake: 13:02 IV: 900ml; Total: 900ml. tp1 Outcome: 12:35 Discharge ordered by . юлия 12:38 Patient's length of stay was not longer than 2 hours. ld1 13:04 Discharged to home via wheelchair, with family. tp1 13:04 Condition: good 13:04 Discharge instructions given to patient, Instructed on discharge instructions, follow up and referral plans. medication usage, Demonstrated understanding of instructions, follow-up care, medications, Prescriptions given X 2. 13:20 Patient left the ED. tp1 13:52 Discharged to home ld1 13:55 Patient left the ED. jl7 Signatures: Dispatcher [employer] EDMS Diana Easley Corey, MD MD cha Leal, Jahala, RN RN jl7 Desi Lopez RN RN tab3 Pushpa Franklin RN RN 1 Evelyn Callahan RN RN ld1 Ivy Zuniga RN RN tp1 Corrections: (The following items were deleted from the chart) 10:21 10:21 Allergies: Demerol; tp1 tp1 11:32 11:29 Reassessment: Patient appears in no apparent distress at this time. Patient is tp1 alert, oriented x 3, equal unlabored respirations, skin warm/dry/pink. rated head and back pain 5/10 tp1 12:11 11:15 Reassessment: Patient appears in no apparent distress at this time. Patient is tp1 alert, oriented x 3, equal unlabored respirations, skin warm/dry/pink. rated head and back pain 5/10 tp1 12:48 12:28 Reassessment: Dr. Mckee at bedside, C-collar removed. ld1 ld1
--- NOTE | 2022-05-21 12:36 | EDPHYS ---
Physician Documentation [facility] Name: Alexandra Mendoza Age: 62 yrs Sex: Female : 1960 Arrival Date: 05/21/2022 Time: 10:20 Bed 6 Private MD: ED Physician Octavio Mckee HPI: 05/21 10:41 This 62 yrs old Female presents to ER via EMS with complaints of Fall Injury. юлия 10:41 Details of fall: The patient fell from a height, down approximately 1 stairs. юлия Historical: - Allergies: 10:21 Morphine; tp1 10:21 Sulfa (Sulfonamide Antibiotics); tp1 - Home Meds: 12:12 metformin 1,000 mg Oral tab 1 tab 2 times per day [Active]; lovastatin 10 mg Oral tab 1 tp1 tab once daily [Active]; losartan-hydrochlorothiazide 100-12.5 mg Oral tab 1 tab once daily [Active]; levothyroxine 137 mcg tab 1 tab once daily [Active]; calcium carbonate 600 mg (1,500 mg) Oral tab [Active]; fenofibrate 145 mg Oral [Active]; alendronate 70 mg/75 mL Oral soln 75 mL once wkly [Active]; 12:53 metoprolol tartrate-hydrochlorothiazide oral [Active]; amlodipine oral [Active]; tp1 gabapentin oral [Active]; sertraline oral [Active]; - PMHx: 10:21 Diabetes - NIDDM; High Cholesterol; Hypertension; Growth on Thyroid; tp1 - Immunization history:: Client reports receiving the 2nd dose of the Covid vaccine. - Social history:: Smoking status: Patient denies any tobacco usage or history of. - Immunization history: Last tetanus immunization: unknown. ROS: 10:43 Constitutional: Negative for fever, chills, and weight loss, Eyes: Negative for injury, юлия pain, redness, and discharge, ENT: Negative for injury, pain, and discharge, Neck: Negative for injury, pain, and swelling, Cardiovascular: Negative for chest pain, palpitations, and edema, Respiratory: Negative for shortness of breath, cough, wheezing, and pleuritic chest pain, Abdomen/GI: Negative for abdominal pain, nausea, vomiting, diarrhea, and constipation, : Negative for injury, bleeding, discharge, and swelling, MS/Extremity: Negative for injury and deformity, Skin: Negative for injury, rash, and discoloration, Neuro: Negative for headache, weakness, numbness, tingling, and seizure, Psych: Negative for depression, anxiety, suicide ideation, homicidal ideation, and hallucinations, Allergy/Immunology: Negative for hives, rash, and allergies, Endocrine: Negative for neck swelling, polydipsia, polyuria, polyphagia, and marked weight changes, Hematologic/Lymphatic: Negative for swollen nodes, abnormal bleeding, and unusual bruising. 10:43 Back: Positive for injury or acute deformity, decreased range of motion, pain at rest, pain with movement, flank pain, bilaterally. Exam: 10:43 Constitutional: This is a well developed, well nourished patient who is awake, alert, юлия and in no acute distress. Head/Face: Normocephalic, atraumatic. Eyes: Pupils equal round and reactive to light, extra-ocular motions intact. Lids and lashes normal. Conjunctiva and sclera are non-icteric and not injected. Cornea within normal limits. Periorbital areas with no swelling, redness, or edema. ENT: Nares patent. No nasal discharge, no septal abnormalities noted. Tympanic membranes are normal and external auditory canals are clear. Oropharynx with no redness, swelling, or masses, exudates, or evidence of obstruction, uvula midline. Mucous membranes moist. Neck: Trachea midline, no thyromegaly or masses palpated, and no cervical lymphadenopathy. Supple, full range of motion without nuchal rigidity, or vertebral point tenderness. No Meningismus. Chest/axilla: Normal chest wall appearance and motion. Nontender with no deformity. No lesions are appreciated. Cardiovascular: Regular rate and rhythm with a normal S1 and S2. No gallops, murmurs, or rubs. Normal PMI, no JVD. No pulse deficits. Respiratory: Lungs have equal breath sounds bilaterally, clear to auscultation and percussion. No rales, rhonchi or wheezes noted. No increased work of breathing, no retractions or nasal flaring. Abdomen/GI: Soft, non-tender, with normal bowel sounds. No distension or tympany. No guarding or rebound. No evidence of tenderness throughout. Female : Normal external genitalia. Skin: Warm, dry with normal turgor. Normal color with no rashes, no lesions, and no evidence of cellulitis. MS/ Extremity: Pulses equal, no cyanosis. Neurovascular intact. Full, normal range of motion. Neuro: Awake and alert, GCS 15, oriented to person, place, time, and situation. Cranial nerves II-XII grossly intact. Motor strength 5/5 in all extremities. Sensory grossly intact. Cerebellar exam normal. Normal gait. Psych: Awake, alert, with orientation to person, place and time. Behavior, mood, and affect are within normal limits. 10:43 Back: pain, that is moderate, that is severe, ROM is painful, normal spinal alignment noted, CVA tenderness, that is mild, vertebral tenderness, is appreciated at T10, T11, T12, L1, L2, L3, L4 and L5, muscle spasm, is appreciated in the left scapular area, right scapular area, left low back, left mid back, right mid back and right low back. 13:36 ECG was reviewed by the Attending Physician. юлия Vital Signs: 10:07 BP 167 / 79; Pulse 92; Resp 20; Temp 97.9(O); Pulse Ox 97% on R/A; Weight 68.04 kg; vg1 Height 5 ft. 1 in. (154.94 cm); Pain 5/10; 11:06 BP 176 / 87; Pulse 90; Resp 17; Pulse Ox 94% on R/A; tp1 11:33 BP 176 / 87; Pulse 89; Pulse Ox 98% on R/A; ap3 12:00 BP 178 / 83; Pulse 87; Resp 15; Pulse Ox 97% on R/A; tp1 12:30 BP 183 / 79; Pulse 87; Resp 12; Pulse Ox 99% on R/A; ld1 12:45 BP 173 / 89; Pulse 85; Resp 15; Pulse Ox 100% on R/A; tp1 10:07 Body Mass Index 28.34 (68.04 kg, 154.94 cm) vg1 [place] Coma Score: 10:07 Eye Response: spontaneous(4). Verbal Response: oriented(5). Motor Response: obeys vg1 commands(6). Total: 15. Trauma Score (Adult): 10:07 Eye Response: spontaneous(1); Verbal Response: oriented(1); Motor Response: obeys vg1 commands(2); Systolic BP: > 89 mm Hg(4); Respiratory Rate: 10 to 29 per min(4); Alvarado Score: 15; Trauma Score: 12 MDM: 10:20 Patient medically screened. юлия 10:20 Patient medically screened. юлия 10:47 Differential diagnosis: closed head injury, contusion, fracture, multiple trauma, юлия sprain, strain. Data reviewed: vital signs, nurses notes, lab test result(s), EKG, radiologic studies, CT scan. Data interpreted: panel monitor: rate is 92 beats/min, Pulse oximetry: on room air is 97 %. Test interpretation: by ED physician or midlevel provider: ECG, plain radiologic studies. Counseling: I had a detailed discussion with the patient and/or guardian regarding: the historical points, exam findings, and any diagnostic results supporting the discharge/admit diagnosis, lab results, radiology results. 05/21 10:23 Order name: Basic Metabolic Panel; Complete Time: 12:27 [facility] 05/21 10:23 Order name: CBC with Diff; Complete Time: 11:31 [facility] 05/21 10:23 Order name: Type And Screen [facility] 05/21 10:23 Order name: LFT's; Complete Time: 12:27 [facility] 05/21 10:23 Order name: Lipase; Complete Time: 12:27 [facility] 05/21 10:23 Order name: SARS RAPID; Complete Time: 12:27 [facility] 05/21 10:23 Order name: CT Traumagram (Head C Spine CAP W Con); Complete Time: 12:27 [facility] 05/21 10:23 Order name: Labs collected and sent; Complete Time: 11:45 [facility] 05/21 10:23 Order name: EKG; Complete Time: 10:24 [facility] 05/21 10:23 Order name: EKG - Nurse/Tech; Complete Time: 11:19 [facility] 05/21 10:41 Order name: Labs - recollect needed: recollect all tubes; Complete Time: 11:45 bd EC:36 Rate is 85 beats/min. Rhythm is regular. QRS [place] is Normal. [place] interval is normal. QRS юлия interval is normal. QT interval is normal. No Q waves. T waves are Normal. No ST changes noted. Clinical impression: Normal ECG and No evidence of ischemia. Interpreted by me. Reviewed by me. Administered Medications: 10:37 Drug: NS 0.9% 1000 ml Route: IV; Rate: 1 bolus; Site: right antecubital; tp1 13:02 Follow up: IV Status: Completed infusion; IV Intake: 900ml tp1 10:39 Drug: Zofran (Ondansetron) 4 mg Route: IVP; Site: right antecubital; tp1 11:00 Follow up: Response: No change in condition tp1 10:42 Drug: fentaNYL (PF) 50 mcg Route: IVP; Site: right antecubital; tp1 11:00 Follow up: Response: Pain is decreased tp1 11:26 Drug: fentaNYL (PF) 25 mcg Route: IVP; Site: right antecubital; ld1 13:02 Follow up: Response: Pain is unchanged, physician notified tp1 13:01 Drug: Valium (diazepam) 10 mg Route: PO; tp1 13:02 Follow up: Response: Medication administered at discharge. tp1 Disposition Summary: 05/21/22 12:35 Discharge Ordered Location: Home юлия Problem: new юлия Symptoms: have improved юлия Condition: Stable юлия Diagnosis - Fall on same level, unspecified юлия - Fracture of first lumbar vertebra - anterior юлия - Unspecified kidney failure - renal insufficency юлия Followup: юлия - With: Private Physician - When: 2 - 3 days - Reason: Recheck today's complaints, Continuance of care, Re-evaluation by your physician Followup: юлия - With: Yvon Larson MD - When: 2 - 3 days - Reason: Recheck today's complaints, Re-evaluation by your physician Discharge Instructions: - Discharge Summary Sheet юлия - Lumbar Spine Fracture юлия - Chronic Kidney Disease, Adult, Syov-go-Oemx юлия Forms: - Medication Reconciliation Form юлия - Thank You Letter юлия - Antibiotic Education юлия - Prescription Opioid Use юлия Prescriptions: - Valium 5 mg Oral Tablet - take 1 tablet by ORAL route every 8 hours As needed; 20 tablet; Refills: 0, юлия Product Selection Permitted - Tylenol-Codeine #3 300 mg-30 mg Oral - take 2 tablet by ORAL route every 6 hours; 24 tablet; Refills: 0, Product юлия Selection Permitted Signatures: Dispatcher [employer] EDDiana Santana Corey, MD MD cha Garcia, Victoria, RN RN vg1 Evelyn Callahan RN RN ld1 Ivy Zuniga RN RN tp1 Corrections: (The following items were deleted from the chart) 10: 10:21 Allergies: Demerol; tp1 tp1 12:39 10:23 Ruslan thomas
[2022-05-21] MEDS ORDERED: DIAZEPAM 5 MG TABLET ONE (12:54)
[2022-05-21 16:55] VITALS: TEMP 97.9
[2022-05-21 20:22] VITALS: BP 173/89; O2SAT 100
--- NOTE | 2022-05-22 17:12 | EKG ---
Test Date: 2022-05-21 Test Time: 11:12:35 Gardening Instructor: ALP MEASUREMENT RESULTS: Intervals: Rate: 85 AL: 150 QRSD: 56 QT: 370 QTc: 440 Tatums: P: 49 AL: 150 QRS: 28 T: 75 INTERPRETIVE STATEMENTS: Normal sinus rhythm Normal ECG Compared to ECG 05/16/2020 11:20:04 No significant changes Electronically Signed On 05-22-22 17:07:02 CDT by Deven Contreras
== END 2022-05-21 13:55 | disposition home or self-care (01) ==
LOC: ER 10:03
DX: S32.019A Unspecified fracture of first lumbar vertebra, initial encounter for closed fracture (principal); W18.30XA Fall on same level, unspecified, initial encounter; N19 Unspecified kidney failure; Z20.822 Contact with and (suspected) exposure to COVID-19; Z88.2 Allergy status to sulfonamides; Z88.5 Allergy status to narcotic agent; E11.9 Type 2 diabetes mellitus without complications; I10 Essential (primary) hypertension
CPT/HCPCS: 96361; 93005; 85025; 80048; 36415; 86900; 86850; 86901; 80076; 83690; 70450; 72125; 71260; 74177; 96375; 96374; 99284; 87811; Q9967; J3010 ×2; J7030; J2405